=== PATIENT | female | born 1990 | race Caucasian/White ===

== ENCOUNTER 2022-06-29 15:29 | Inpatient (IN) ==
[2022-06-29 15:47] LABS: Basophils # (auto) 0.09 K/uL (0-0.2); Basophils % (auto) 0.9 %; Hematocrit (blood only) 38.9 % (34.1-44.9); Hemoglobin 13.2 g/dl (12.0-16.0); Immature Granulocytes # (auto) 0.04 K/uL (0.00-0.02); Immature Granulocytes % (auto) 0.4 %; Lymphocytes # (auto) 2.79 K/uL (1.2-3.4); Mean Corpuscular Hemoglobin 29.5 pg (25.0-34.0); Mean Corpuscular Hgb Conc 33.9 g/dL (32.0-36.0); Mean Platelet Volume 12.3 fL (9.4-12.3); Monocytes # (auto) 0.54 K/uL (0.24-0.82); Monocytes % (auto) 5.4 %; Neutrophils % (auto) 63.3 %; Platelet Count 293 K/uL (130-400); RDW Coefficient of Variation 12.9 % (11.5-14.5); RDW Standard Deviation 40.8 fL (36.4-46.3); Red Blood Count 4.47 M/uL (3.93-5.22); White Blood Count 9.96 K/ul (4.8-10.8)
[2022-06-29 16:03] LABS: Pregnancy Test, Serum Negative (Negative)
[2022-06-29] MEDS ORDERED: KETOROLAC TROMETHAMINE 15 MG/ML VIAL IV STA (16:19)
[2022-06-29] MEDS ORDERED: ONDANSETRON INJ 2 MG/ML 2 ML VIAL IV STA ×2 (16:19→18:03)
[2022-06-29] MEDS ORDERED: SODIUM CHLORIDE 0.9% 1000ML 1,000 ML IV ONE (16:19)
[2022-06-29 16:21] LABS: BUN Creatinine Ratio 16.2 (10-20); Calcium 8.2 mg/dl (8.5-10.1); Creatinine Clr Calc Pharmacy 123.7 ml/min; Est GFR (African American) 133.2 ml/min; Est GFR (Non-African American) 114.9 ml/min; Potassium 4.1 mmol/L (3.5-5.1)
[2022-06-29 16:35] LABS: Albumin Globulin Ratio 1.4 (0.9-2); Albumin Level 4.2 gm/dl (3.4-5.0); Bilirubin,Total 0.4 mg/dl (0.2-1.0); Globulin 2.9 gm/dl (2.5-4.0); Total Protein 7.1 gm/dl (6.0-8.3)
--- NOTE | 2022-06-29 16:37 | Emergency Department Note ---
History of Present Illness General Chief Complaint: Abdominal Pain Time Seen by Provider: 06/29/22 16:10 History of Present Illness Provider Complaint: abdominal pain Onset (ago): day(s) (1) Pain Consistency: intermittent Location: epigastric Radiation: back Severity: moderate Maximum Pain Intensity: 5 Current Pain Intensity: 5 Quality: + stabbing and + sharp Relieved By: + nothing Exacerbated By: + nothing Context: + history of similar episodes (History of gallstones); no foreign travel, no possible food poisoning, no sick contacts, no recent antibiotic use, no recent surgery/procedure or no recent injury Associated Symptoms: + nausea and + vomiting; no diarrhea, no fever, no chills, no constipation, no dysuria, no hematemesis, no hematochezia, no melena, no hematuria, no headache and no back pain Related Data Patient Confirmed : No Home Medications Medication Instructions Recorded Confirmed Type bupropion HCl 75 mg tablet 75 mg PO BID 06/29/22 06/29/22 History calcium carb-ergocalciferol (vit 1 tab PO BID 06/29/22 06/29/22 History D2) 600 mg calcium-200 unit tablet cyanocobalamin (vitamin B-12) 1,000 mcg IM Q28D 06/29/22 06/29/22 History 1,000 mcg/mL injection solution etonogestrel 0.12 mg-ethinyl 1 vag ring vaginal UD 06/29/22 06/29/22 History estradiol 0.015 mg/24 hr vaginal ring (EluRyng) lysine 1,000 mg tablet 1,000 mg PO DAILY 06/29/22 06/29/22 History pantoprazole 40 mg tablet,delayed 40 mg PO QAM 06/29/22 06/29/22 History release Allergies Allergy/AdvReac Type Severity Reaction Status Date / Time Penicillins Allergy Unknown OCCURED Verified 06/29/22 15:55 A CHILD Past Med/Surg History Medical History (Updated 06/30/22 @ 00:20 by Stu May) Acute pancreatitis Environmental and seasonal allergies Gallstone Obesity PCOS (polycystic ovarian syndrome) Surgical History H/O gastric bypass H/O wisdom tooth extraction History of tonsillectomy Family History Father Diabetes Social History Smoking Status: Never smoker Preferred Language: Serbian Feels Safe at Home: Yes Review of Systems A total of 10 systems reviewed and were otherwise negative Physical Exam Vital Signs: Vital Signs - 24 hr 06/29/22 15:20 06/29/22 15:20 06/29/22 15:36 Temperature 36.6 C Temperature Source Oral Pulse Rate 76 75 Pulse Rate from Sp O2 Sensor 74 Pulse Rhythm Regular Pulse Strength Normal Respiratory Rate 20 22 19 Respiratory Effort / Characteristics Non-Labored Non-Labored Respiratory Depth Normal Normal Respiratory Patter n Regular Blood Pressure Blood Pressure Meera n Blood Pressure Pos ition Lying Pulse Oximetry 99 100 Oxygen Delivery Me thod Room Air Sepsis Recent Feve r Within 48 Hours No Sepsis New/Unexpla ined Change in Men nilson Status N/A Sepsis Action Take n by Nursing No Action Required 06/29/22 15:41 06/29/22 15:41 06/29/22 16:00 Temperature Temperature Source Pulse Rate 68 Pulse Rate from Sp O2 Sensor 70 Pulse Rhythm Pulse Strength Respiratory Rate 20 Respiratory Effort / Characteristics Respiratory Depth Respiratory Patter n Blood Pressure 111/71 96/60 L Blood Pressure Meera n 84 72 Blood Pressure Pos ition Pulse Oximetry 100 Oxygen Delivery Me thod Sepsis Recent Feve r Within 48 Hours Sepsis New/Unexpla ined Change in Men nilson Status Sepsis Action Take n by Nursing 06/29/22 16:00 06/29/22 16:30 06/29/22 16:30 Temperature Temperature Source Pulse Rate 71 69 Pulse Rate from Sp O2 Sensor 71 69 Pulse Rhythm Pulse Strength Respiratory Rate 19 14 Respiratory Effort / Characteristics Respiratory Depth Respiratory Patter n Blood Pressure 100/65 Blood Pressure Meera n 76 Blood Pressure Pos ition Pulse Oximetry 100 100 Oxygen Delivery Me thod Sepsis Recent Feve r Within 48 Hours Sepsis New/Unexpla ined Change in Men nilson Status Sepsis Action Take n by Nursing 06/29/22 17:17 06/29/22 17:17 06/29/22 17:30 Temperature Temperature Source Pulse Rate 74 Pulse Rate from Sp O2 Sensor 71 Pulse Rhythm Pulse Strength Respiratory Rate 20 Respiratory Effort / Characteristics Respiratory Depth Respiratory Patter n Blood Pressure 102/58 L 111/66 Blood Pressure Meera n 72 81 Blood Pressure Pos ition Pulse Oximetry 100 Oxygen Delivery Me thod Sepsis Recent Feve r Within 48 Hours Sepsis New/Unexpla ined Change in Men nilson Status Sepsis Action Take n by Nursing 06/29/22 17:30 06/29/22 18:00 06/29/22 18:00 Temperature Temperature Source Pulse Rate 65 64 Pulse Rate from Sp O2 Sensor 63 64 Pulse Rhythm Pulse Strength Respiratory Rate 13 14 Respiratory Effort / Characteristics Respiratory Depth Respiratory Patter n Blood Pressure 107/68 Blood Pressure Meera n 81 Blood Pressure Pos ition Pulse Oximetry 100 100 Oxygen Delivery Me thod Sepsis Recent Feve r Within 48 Hours Sepsis New/Unexpla ined Change in Men nilson Status Sepsis Action Take n by Nursing 06/29/22 18:30 06/29/22 18:30 06/29/22 19:00 Temperature Temperature Source Pulse Rate 72 Pulse Rate from Sp O2 Sensor 74 Pulse Rhythm Pulse Strength Respiratory Rate 16 Respiratory Effort / Characteristics Respiratory Depth Respiratory Patter n Blood Pressure 110/72 106/63 Blood Pressure Meera n 84 77 Blood Pressure Pos ition Pulse Oximetry 99 Oxygen Delivery Me thod Sepsis Recent Feve r Within 48 Hours Sepsis New/Unexpla ined Change in Men nilson Status Sepsis Action Take n by Nursing 06/29/22 19:00 06/29/22 19:30 06/29/22 19:30 Temperature Temperature Source Pulse Rate 71 68 Pulse Rate from Sp O2 Sensor 72 69 Pulse Rhythm Pulse Strength Respiratory Rate 13 22 Respiratory Effort / Characteristics Respiratory Depth Respiratory Patter n Blood Pressure 113/63 Blood Pressure Meera n 79 Blood Pressure Pos ition Pulse Oximetry 97 98 Oxygen Delivery Me thod Sepsis Recent Feve r Within 48 Hours Sepsis New/Unexpla ined Change in Men nilson Status Sepsis Action Take n by Nursing 06/29/22 19:45 Temperature Temperature Source Pulse Rate 72 Pulse Rate from Sp O2 Sensor 73 Pulse Rhythm Pulse Strength Respiratory Rate 21 Respiratory Effort / Characteristics Respiratory Depth Respiratory Patter n Blood Pressure Blood Pressure Meera n Blood Pressure Pos ition Pulse Oximetry 98 Oxygen Delivery Me thod Sepsis Recent Feve r Within 48 Hours Sepsis New/Unexpla ined Change in Men nilson Status Sepsis Action Take n by Nursing Physical Exam: Physical Exam GENERAL: She is oriented to person, place, and time. She appears well-developed and well-nourished. She does not appear distressed. HENT: Exam performed. -Head: Normocephalic and atraumatic. -Right Ear: External ear normal. No mastoid tenderness. -Left Ear: External ear normal. No mastoid tenderness. -Mouth/Throat: The oropharynx is clear and moist. No trismus in the jaw. No dental abscesses or uvula swelling. No oropharyngeal exudate or tonsillar abscesses. EYES: Conjunctivae and EOM are normal. Pupils are equal, round, and reactive to light. Right eye exhibits no discharge. Left eye exhibits no discharge. No scleral icterus. NECK: Normal range of motion. Neck supple. No JVD present. No spinous process tenderness present. No carotid bruit present. No rigidity. No tracheal deviation and normal range of motion present. No Brudzinski's sign and no Kernig's sign noted. CV: Normal rate, regular rhythm, normal heart sounds and intact distal pulses. There is no peripheral edema. Palpable radial pulses bue. PULM/CHEST: Effort normal and breath sounds normal. No respiratory distress. No stridor. She has no wheezes. She has no rales. -Chest Wall: She exhibits no tenderness. ABD: The abdomen is soft. Bowel sounds are normal. She has no distension. No mass is present. There is tenderness to palpation of the epigastric area. There is no rebound, no guarding, no Pacheco's sign and no tenderness at McBurney's point. Rovsig negative MUSC/SKEL: Normal range of motion. There is no peripheral edema, tenderness or deformity. LYMPH: No cervical adenopathy. NEURO: She is alert and oriented to person, place, and time. She has normal strength. No cranial nerve deficit or sensory deficit. Coordination and gait normal. GCS eye subscore is 4. GCS verbal subscore is 5. GCS motor subscore is 6. Cerebellar tests wnl. SKIN: Skin is warm and dry. She is not diaphoretic. PSYCH: She has a normal mood and affect. Behavior is normal. Judgment and thought content normal. Course Course 1610: The patient was evaluated in room A2. A complete history and physical exam was performed Cardiac monitoring: An order was placed for continuous cardiac monitoring. The monitor shows a rate of 60 with sinus rhythm 1836: Vital signs stable. Labs show elevated lipase of greater than 4000 and an AST more than twice a ALT. CT does confirm pancreatitis. CT also mentions a possible developing small bowel obstruction however the patient reports no difficulties having bowel movements. CT report shows that there is a distended gallbladder with mild gallbladder thickening which is nonspecific and may be related to periportal edema. Clinically the patient does not have a Pacheco sign and no pain on palpation right upper quadrant. [facility] Dr. Benitez for pancreatitis. Ultrasound is ordered for the patient. 2024: Ultrasound shows gallstones and a negative sonographic Pacheco sign. Equivocal for acute cholecystitis. Patient admitted to medicine. Administered Medications Bupropion HCl (Bupropion Hcl 75 Mg Tablet) 75 mg PO BID [facility] Stop: 07/29/22 22:40 Last Admin: 06/30/22 00:06 Dose: Not Given Documented By: SUJATA Calcium/Vitamin D (Calcium 600mg + Vit D 400 Iu Tab) 1 tab PO BID [facility]IMI Stop: 07/29/22 22:40 Last Admin: 06/30/22 00:06 Dose: Not Given Documented By: SUJATA Lactated Ringer's (Lr) 1,000 mls @ 150 mls/hr IV .Q6H40M [facility] Stop: 07/29/22 22:40 Last Admin: 06/30/22 00:05 Dose: 150 mls/hr Documented By: SUJATA Cefepime HCl 2,000 mg/ Syringe 20 mls @ 5 mls/min IV Q8H [facility]; Protocol Stop: 07/09/22 22:59 Last Admin: 06/30/22 00:05 Dose: 5 mls/min Documented By: SUJATA Metronidazole (Flagyl) 500 mg in 100 mls @ 100 mls/hr IV Q8H [facility] Stop: 07/09/22 22:59 Last Admin: 06/30/22 00:05 Dose: 100 mls/hr Documented By: SUJATA Discontinued Medications Sodium Chloride (Nss 1000ml) 1,000 mls @ 999 mls/hr IV .Q1H1M ONE Stop: 06/29/22 17:19 Last Admin: 06/29/22 17:12 Dose: 999 mls/hr Documented By: MARLEE Sodium Chloride (Nss 1000ml) 1,000 mls @ 125 mls/hr IV .Q8H [facility]IMI Stop: 07/29/22 18:14 Last Admin: 06/29/22 19:00 Dose: 125 mls/hr Documented By: DAVEY Ioversol (Optiray 350 100ml) 82 ml IV ONCE ONE Stop: 06/29/22 17:05 Last Admin: 06/29/22 17:05 Dose: 82 ml Documented By: ARYA Ketorolac Tromethamine (Ketorolac Tromethamine 15 Mg/Ml Vial) 15 mg IV NOW STA Stop: 06/29/22 16:20 Last Admin: 06/29/22 17:12 Dose: Not Given Documented By: MARLEE Morphine Sulfate (Morphine Sulfate 4 Mg/Ml 1 Ml Carp\Vial) 4 mg IV NOW STA Stop: 06/29/22 18:04 Last Admin: 06/29/22 18:30 Dose: Not Given Documented By: LOD Ondansetron HCl (Ondansetron Inj 2 Mg/Ml 2 Ml Vial) 4 mg IV NOW STA Stop: 06/29/22 16:20 Last Admin: 06/29/22 17:12 Dose: 4 mg Documented By: MARLEE Ondansetron HCl (Ondansetron Inj 2 Mg/Ml 2 Ml Vial) 4 mg IV NOW STA Stop: 06/29/22 18:04 Last Admin: 06/29/22 18:30 Dose: Not Given Documented By: RDD Medical Decision Making Laboratory Data Result diagrams: 06/29/22 15:33 06/29/22 15:33 Lab Results 06/29/22 06/29/22 06/29/22 Range/Units 15:33 15:33 15:33 WBC 9.96 (4.8-10.8) K/ul RBC 4.47 (3.93-5.22) M/uL Hgb 13.2 (12.0-16.0) g/dl Hct 38.9 (34.1-44.9) % MCV 87.0 (80.0-100.0) fL MCH 29.5 (25.0-34.0) pg MCHC 33.9 (32.0-36.0) g/dL RDW Std Deviation 40.8 (36.4-46.3) fL RDW Coeff of Paula 12.9 (11.5-14.5) % Plt Count 293 (130-400) K/uL MPV 12.3 (9.4-12.3) fL Immature Gran % (Auto) 0.4 % Neut % (Auto) 63.3 % Lymph % (Auto) 28.0 % [place] % (Auto) 5.4 % Eos % (Auto) 2.0 % Baso % (Auto) 0.9 % Neut # (Auto) 6.30 (1.4-6.5) K/uL Lymph # (Auto) 2.79 (1.2-3.4) K/uL [place] # (Auto) 0.54 (0.24-0.82) K/uL Eos # (Auto) 0.20 (0-0.50) K/uL Baso # (Auto) 0.09 (0-0.2) K/uL Immature Gran # (Auto) 0.04 H (0.00-0.02) K/uL Sodium 138 (136-145) mmol/L Potassium 4.1 (3.5-5.1) mmol/L Chloride 107 (98-107) mmol/L Carbon Dioxide 25 (21-32) mmol/L Anion Gap 6 (3-11) BUN 11 (6-23) mg/dl Creatinine 0.68 (0.6-1.2) mg/dl Est Cr Clr Drug Dosing 123.7 ml/min Est GFR ( Amer) 133.2 ml/min Est GFR (Non-Af Amer) 114.9 ml/min BUN/Creatinine Ratio 16.2 (10-20) Glucose 118 H (70-99(Fasting)) mg/dl Calcium 8.2 L (8.5-10.1) mg/dl Total Bilirubin 0.4 (0.2-1.0) mg/dl AST 42 H (13-39) U/L ALT 20 (7-52) U/L Alkaline Phosphatase 61 (34-104) U/L Total Protein 7.1 (6.0-8.3) gm/dl Albumin 4.2 (3.4-5.0) gm/dl Globulin 2.9 (2.5-4.0) gm/dl Albumin/Globulin Ratio 1.4 (0.9-2) Lipase 4595 H (11-82) U/L HCG, Qual Negative (Negative) SARS-CoV-2, RNA, NAAT (NEGATIVE) 06/29/22 Range/Units 18:53 WBC (4.8-10.8) K/ul RBC (3.93-5.22) M/uL Hgb (12.0-16.0) g/dl Hct (34.1-44.9) % MCV (80.0-100.0) fL MCH (25.0-34.0) pg MCHC (32.0-36.0) g/dL RDW Std Deviation (36.4-46.3) fL RDW Coeff of Paula (11.5-14.5) % Plt Count (130-400) K/uL MPV (9.4-12.3) fL Immature Gran % (Auto) % Neut % (Auto) % Lymph % (Auto) % [place] % (Auto) % Eos % (Auto) % Baso % (Auto) % Neut # (Auto) (1.4-6.5) K/uL Lymph # (Auto) (1.2-3.4) K/uL [place] # (Auto) (0.24-0.82) K/uL Eos # (Auto) (0-0.50) K/uL Baso # (Auto) (0-0.2) K/uL Immature Gran # (Auto) (0.00-0.02) K/uL Sodium (136-145) mmol/L Potassium (3.5-5.1) mmol/L Chloride (98-107) mmol/L Carbon Dioxide (21-32) mmol/L Anion Gap (3-11) BUN (6-23) mg/dl Creatinine (0.6-1.2) mg/dl Est Cr Clr Drug Dosing ml/min Est GFR ( Amer) ml/min Est GFR (Non-Af Amer) ml/min BUN/Creatinine Ratio (10-20) Glucose (70-99(Fasting)) mg/dl Calcium (8.5-10.1) mg/dl Total Bilirubin (0.2-1.0) mg/dl AST (13-39) U/L ALT (7-52) U/L Alkaline Phosphatase (34-104) U/L Total Protein (6.0-8.3) gm/dl Albumin (3.4-5.0) gm/dl Globulin (2.5-4.0) gm/dl Albumin/Globulin Ratio (0.9-2) Lipase (11-82) U/L HCG, Qual (Negative) SARS-CoV-2, RNA, NAAT NEGATIVE (NEGATIVE) Imaging Data Radiologist's Impression: Abdomen/Pelvis CT 06/29/22 16:20 CT SCAN OF THE ABDOMEN AND PELVIS WITH IV CONTRAST CLINICAL HISTORY: Epigastric abdominal pain. COMPARISON STUDY: Pelvic ultrasound dated 12/26/2018. TECHNIQUE: Following the IV administration of 82 cc of Optiray 350, CT scan of the abdomen and pelvis is performed from the lung bases to the proximal femora. Images are reviewed in the axial, sagittal, and coronal planes. IV contrast was administered without complication. A dose lowering technique was utilized adhering to the principles of ALARA. CT DOSE: 409.70 mGy.cm FINDINGS: Lung bases: The heart is normal in size and without pericardial effusion. The lung bases are clear. Liver: The contrast-enhanced liver is normal in size, contour, and attenuation. There is no intrahepatic biliary ductal dilatation. The hepatic veins and portal veins are patent. Periportal edema is noted. Gallbladder: Distended and contains gallstones. The gallbladder wall appears mildly thickened. Spleen: Normal in size and attenuation. Pancreas: Question mild peripancreatic infiltration. The pancreas is otherwise normal as imaged, and the gland enhances throughout. Adrenal glands: Unremarkable. Kidneys: The contrast enhanced kidneys are normal in size and without hydronephrosis. The kidneys enhance symmetrically. Abdominal vasculature: The abdominal aorta is normal in course and caliber. Stomach and bowel: Postsurgical changes consistent with a Karri-en-Y gastric bypass procedure. The proximal jejunum is distended and fluid-filled measuring up to 3 cm diameter. The distal small bowel is relatively decompressed. No discrete transition point is identified. There is moderate colonic fecal retention. The appendix is well-visualized and normal. Peritoneum: There is no intraperitoneal free air or abdominal ascites. Lymphadenopathy: None. Pelvic viscera: The bladder, uterus, and adnexa are normal as visualized noting bilateral ovarian follicles. A dominant follicle on the left measures up to 3.1 cm. A contraceptive ring is in place. Skeletal structures: No lytic or blastic lesions are seen. IMPRESSION: 1. There is postsurgical change consistent with a Karri-en-Y gastric bypass procedure. 2. The proximal jejunum above the anastomosis is mildly distended and fluid- filled. The distal small bowel is relatively decompressed. No discrete transition point is identified. Low-grade or developing obstruction is not excluded. Clinical correlation will be essential. 3. The gallbladder is distended and contains gallstones. Mild gallbladder wall thickening is nonspecific and may be related to periportal edema. Correlate with clinical and laboratory findings. If there is concern for acute cholecystitis a right upper quadrant ultrasound should be obtained. 4. Question mild peripancreatic infiltration. Correlate with clinical findings and serum amylase/lipase levels for evidence of pancreatitis. 5. Additional findings as above. ACT 112: Negative or not required by law. Electronically signed by: Unruly Martinez M.D. 06/29/2022 5:29 PM Gallbladder Ultrasound 06/29/22 18:04 ULTRASOUND RIGHT UPPER QUADRANT ABDOMEN CLINICAL HISTORY: Epigastric abdominal pain. COMPARISON STUDY: Abdominal CT performed earlier the same date 06/29/2022 TECHNIQUE: Real-time, grayscale, and color flow sonography of the right upper quadrant of the abdomen was performed. Images are reviewed in the transverse and longitudinal planes. FINDINGS: Liver: The liver is top normal in size and normal in echotexture. There is no intrahepatic biliary ductal dilatation. The main portal vein is patent. Gallbladder: The gallbladder is distended and appears thick-walled the gallbladder wall measures up to 3 mm. Gallstones are noted. Cholecystectomy is identified. A sonographic Pacheco's sign is reportedly absent. The common bile duct measures up to 0.3 cm in diameter. Pancreas: Not visualized due to overlying bowel gas. Right kidney: Survey images of the right kidney demonstrate normal size and echotexture. There is no hydronephrosis. Ascites: None. IMPRESSION: 1. Cholelithiasis within a mildly thick-walled and distended gallbladder. A sonographic Pacheco's sign is reportedly absent. Findings are equivocal for acute cholecystitis, which is not excluded. If there is strong clinical concern for cholecystitis a nuclear hepatobiliary scan should be considered. 2. There is no intra or extrahepatic biliary ductal dilatation. 3. Nonvisualization of the pancreas. ACT 112: Negative or not required by law. Electronically signed by: Unruly Martinez M.D. 06/29/2022 8:20 PM ECG Data Indication: abdominal pain Rate (beats per minute): 69 Rhythm: normal sinus Findings: no ST depression, no ST elevation or no prolonged QT Additional Comments: QRS 68. Baseline wander and artifact MDM Narrative 1610: The patient was evaluated in room A2. A complete history and physical exam was performed Cardiac monitoring: An order was placed for continuous cardiac monitoring. The monitor shows a rate of 60 with sinus rhythm 1836: Vital signs stable. Labs show elevated lipase of greater than 4000 and an AST more than twice a ALT. CT does confirm pancreatitis. CT also mentions a possible developing small bowel obstruction however the patient reports no difficulties having bowel movements. CT report shows that there is a distended gallbladder with mild gallbladder thickening which is nonspecific and may be related to periportal edema. Clinically the patient does not have a Pacheco sign and no pain on palpation right upper quadrant. [facility] with Dr. Benitez for pancreatitis. Ultrasound is ordered for the patient. 2024: Ultrasound shows gallstones and a negative sonographic Pacheco sign. Eq uivocal for acute cholecystitis. Patient admitted to medicine. Impression & Plan Pancreatitis Discharge Plan Visit Data Chief Complaint: Abdominal Pain ED Provider: Stu May Discharge Problem: Pancreatitis Patient Disposition: Admitted As Inpatient Discharge Instructions Interventions: ED Discharge Assessment Last Done: 06/29/22 22:03
[2022-06-29] MEDS ORDERED: OPTIRAY 350 100ml IV ONE (17:04)
--- NOTE | 2022-06-29 17:31 | CT Scan Report ---
CT SCAN OF THE ABDOMEN AND PELVIS WITH IV CONTRAST CLINICAL HISTORY: Epigastric abdominal pain. COMPARISON STUDY: Pelvic ultrasound dated 12/26/2018. TECHNIQUE: Following the IV administration of 82 cc of Optiray 350, CT scan of the abdomen and pelvi s is performed from the lung bases to the proximal femora. Images are reviewed in the axial, sagittal , and coronal planes. IV contrast was administered without complication. A dose lowering technique wa s utilized adhering to the principles of ALARA. CT DOSE: 409.70 mGy.cm FINDINGS: Lung bases: The heart is normal in size and without pericardial effusion. The lung bases are clear. Liver: The contrast-enhanced liver is normal in size, contour, and attenuation. There is no intrahepa tic biliary ductal dilatation. The hepatic veins and portal veins are patent. Periportal edema is not ed. Gallbladder: Distended and contains gallstones. The gallbladder wall appears mildly thickened. Spleen: Normal in size and attenuation. Pancreas: Question mild peripancreatic infiltration. The pancreas is otherwise normal as imaged, and the gland enhances throughout. Adrenal glands: Unremarkable. Kidneys: The contrast enhanced kidneys are normal in size and without hydronephrosis. The kidneys enh ance symmetrically. Abdominal vasculature: The abdominal aorta is normal in course and caliber. Stomach and bowel: Postsurgical changes consistent with a Karri-en-Y gastric bypass procedure. The pro ximal jejunum is distended and fluid-filled measuring up to 3 cm diameter. The distal small bowel is relatively decompressed. No discrete transition point is identified. There is moderate colonic fecal retention. The appendix is well-visualized and normal. Peritoneum: There is no intraperitoneal free air or abdominal ascites. Lymphadenopathy: None. Pelvic viscera: The bladder, uterus, and adnexa are normal as visualized noting bilateral ovarian fol licles. A dominant follicle on the left measures up to 3.1 cm. A contraceptive ring is in place. Skeletal structures: No lytic or blastic lesions are seen. IMPRESSION: 1. There is postsurgical change consistent with a Karri-en-Y gastric bypass procedure. 2. The proximal jejunum above the anastomosis is mildly distended and fluid-filled. The distal small bowel is relatively decompressed. No discrete transition point is identified. Low-grade or developing obstruction is not excluded. Clinical correlation will be essential. 3. The gallbladder is distended and contains gallstones. Mild gallbladder wall thickening is nonspeci fic and may be related to periportal edema. Correlate with clinical and laboratory findings. If there is concern for acute cholecystitis a right upper quadrant ultrasound should be obtained. 4. Question mild peripancreatic infiltration. Correlate with clinical findings and serum amylase/lipa se levels for evidence of pancreatitis. 5. Additional findings as above. ACT 112: Negative or not required by law. Electronically signed by: Unruly Martinez M.D. 06/29/2022 5:29 PM
[2022-06-29] MEDS ORDERED: MoRPHine SULFATE 4 MG/ML 1 ML CARP\\VIAL IV STA (18:03)
[2022-06-29] MEDS ORDERED: SODIUM CHLORIDE 0.9% 1000ML 1,000 ML IV SCH (18:15)
--- NOTE | 2022-06-29 18:38 | History & Physical Report ---
Date of Service June 29, 2022 Assessment & Plan (1) Acute pancreatitis: Plan: Gallstone pancreatitis Possible abdominal pain small bowel obstruction Concern for acute cholecystitis H/O gastric bypass --CT ABD:There is postsurgical change consistent with a Karri-en-Y gastric bypass procedure. The proximal jejunum above the anastomosis is mildly distended and fluid-filled. The distal small bowel is relatively decompressed. No discrete transition point is identified. Low-grade or developing obstruction is not excluded. Clinical correlation will be essential. The gallbladder is distended and contains gallstones. Mild gallbladder wall thickening is nonspecific and may be related to periportal edema. Correlate with clinical and laboratory findings. If there is concern for acute cholecystitis a right upper quadrant ultrasound should be obtained. Question mild peripancreatic infiltration. Correlate with clinical findings and serum amylase/lipase levels for evidence of pancreatitis. --Gall Bladder USD: cholelithiasis within a mildly thick-walled and distended gallbladder. A sonographic Pacheco's sign is reportedly absent. Findings are equivocal for acute cholecystitis, which is not excluded. If there is strong clinical concern for cholecystitis a nuclear hepatobiliary scan should be considered. There is no intra or extrahepatic biliary ductal dilatation. Nonvisualization of the pancreas. --NPO for now Started on IV fluids Check HIDA scan GI, Surgery consulted Started on empiric antibiotics--cefepime, Flagyl Check Lipid panel Pain control Monitor LFTs Anxiety and Depression Continue Bupropion Polycystic ovarian syndrome Irritable bowel syndrome Obesity S/P Gastric Bypass Stable DVT Px: SCDs for now Code Status Full Code History of Present Illness Chief Complaint: Abdominal Pain Primary Care Provider: Zen Segal DO Patient is a 31-year-old female with history of polycystic ovarian syndrome, irritable bowel syndrome, Obesity S/P Gastric Bypass, cholelithiasis and other medical problems presents with history of epigastric sharp stabbing pain, 10/10 intensity, radiating to the back, associated with nausea and vomiting which started this afternoon after having lunch. 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 Patient had similar symptoms in the past few days ago which spontaneously resolved. Epigastric pain worsens with eating and improves with pain medications. Currently while in ED, patient is pain-free. She felt feverish today but did not check her temperature. She admits to drinking alcohol socially, last drink 2 days ago. Denies any history of chest pain, dyspnea, palpitations, dizziness, pedal edema, cough, headache, blood in stools, diarrhea, dysuria, hematuria. Allergies Allergy/AdvReac Type Severity Reaction Status Date / Time Penicillins Allergy Unknown OCCURED Verified 06/29/22 15:55 A CHILD Home Medications Medication Instructions Recorded Confirmed Type bupropion HCl 75 mg tablet 75 mg PO BID 06/29/22 06/29/22 History calcium carb-ergocalciferol (vit 1 tab PO BID 06/29/22 06/29/22 History D2) 600 mg calcium-200 unit tablet cyanocobalamin (vitamin B-12) 1,000 mcg IM Q28D 06/29/22 06/29/22 History 1,000 mcg/mL injection solution etonogestrel 0.12 mg-ethinyl 1 vag ring vaginal UD 06/29/22 06/29/22 History estradiol 0.015 mg/24 hr vaginal ring (EluRyng) lysine 1,000 mg tablet 1,000 mg PO DAILY 06/29/22 06/29/22 History pantoprazole 40 mg tablet,delayed 40 mg PO QAM 06/29/22 06/29/22 History release Past Med/Surg History Medical History (Updated 06/29/22 @ 21:05 by Karlos Nazario MD) Acute pancreatitis Environmental and seasonal allergies Gallstone Obesity PCOS (polycystic ovarian syndrome) Surgical History H/O gastric bypass H/O wisdom tooth extraction History of tonsillectomy Family History Father Diabetes Social History Smoking Status: Never smoker Preferred Language: Greenlandic Feels Safe at Home: Yes Review of Systems Review of Systems: All systems reviewed & are unremarkable except as noted in Subjective Physical Exam Physical Exam: Physical Exam: Vitals signs as noted above General Appearance:Moderately built and nourished, no apparent distress Head: normocephalic, Atraumatic Eyes: normal inspection, EOMI Neck: supple, Trachea midline Respiratory/Chest: Normal breath sounds, CTA, No accessory muscle use Cardiovascular: S1, S2, No murmur Abdomen/GI:Soft, mild Epigastric tender, Bowel sounds present Extremities/Musculoskeletal:normal inspection, no edema Neurologic/Psych:AAOX3, grossly no focal neurological deficits Skin: normal color, warm Results & Data Results & Data ([facility]) Vital Signs (Past 12 Hours) Vital Signs Temp Pulse Resp BP Pulse Ox O2 Del Method 06/29/22 17:30 65 13 100 06/29/22 17:30 111/66 06/29/22 17:17 74 20 100 06/29/22 17:17 102/58 L 06/29/22 16:30 69 14 100 06/29/22 16:30 100/65 06/29/22 16:00 71 19 100 06/29/22 16:00 96/60 L 06/29/22 15:41 68 20 100 06/29/22 15:41 111/71 06/29/22 15:36 75 19 100 06/29/22 15:20 22 06/29/22 15:20 36.6 C 76 20 99 Room Air Laboratory Results Short CBC 06/29/22 Range/Units 15:33 WBC 9.96 (4.8-10.8) K/ul Hgb 13.2 (12.0-16.0) g/dl Hct 38.9 (34.1-44.9) % Plt Count 293 (130-400) K/uL BMP 06/29/22 15:33 Sodium 138 Potassium 4.1 Chloride 107 Carbon Dioxide 25 BUN 11 Creatinine 0.68 Glucose 118 H Calcium 8.2 L Liver Function 06/29/22 Range/Units 15:33 Total Bilirubin 0.4 (0.2-1.0) mg/dl AST 42 H (13-39) U/L ALT 20 (7-52) U/L Alkaline Phosphatase 61 (34-104) U/L Albumin 4.2 (3.4-5.0) gm/dl Diagnostic Findings --CT ABD: There is postsurgical change consistent with a Karri-en-Y gastric bypass procedure. The proximal jejunum above the anastomosis is mildly distended and fluid-filled. The distal small bowel is relatively decompressed. No discrete transition point is identified. Low-grade or developing obstruction is not excluded. Clinical correlation will be essential. The gallbladder is distended and contains gallstones. Mild gallbladder wall thickening is nonspecific and may be related to periportal edema. Correlate with clinical and laboratory findings. If there is concern for acute cholecystitis a right upper quadrant ultrasound should be obtained. Question mild peripancreatic infiltration. Correlate with clinical findings and serum amylase/lipase levels for evidence of pancreatitis. Gall Bladder USD: Cholelithiasis within a mildly thick-walled and distended gallbladder. A sonographic Pacheco's sign is reportedly absent. Findings are equivocal for acute cholecystitis, which is not excluded. If there is strong clinical concern for cholecystitis a nuclear hepatobiliary scan should be considered. There is no intra or extrahepatic biliary ductal dilatation. Nonvisualization of the pancreas. ECG Additional Comments: EKG: Normal sinus rhythm, PACs, voltage QRS, QTC 439.
--- NOTE | 2022-06-29 20:22 | Ultrasound Report ---
ULTRASOUND RIGHT UPPER QUADRANT ABDOMEN CLINICAL HISTORY: Epigastric abdominal pain. COMPARISON STUDY: Abdominal CT performed earlier the same date 06/29/2022 TECHNIQUE: Real-time, grayscale, and color flow sonography of the right upper quadrant of the abdomen was performed. Images are reviewed in the transverse and longitudinal planes. FINDINGS: Liver: The liver is top normal in size and normal in echotexture. There is no intrahepatic biliary du ctal dilatation. The main portal vein is patent. Gallbladder: The gallbladder is distended and appears thick-walled the gallbladder wall measures up t o 3 mm. Gallstones are noted. Cholecystectomy is identified. A sonographic Pacheco's sign is reportedly absent. The common bile duct measures up to 0.3 cm in diameter. Pancreas: Not visualized due to overlying bowel gas. Right kidney: Survey images of the right kidney demonstrate normal size and echotexture. There is no hydronephrosis. Ascites: None. IMPRESSION: 1. Cholelithiasis within a mildly thick-walled and distended gallbladder. A sonographic Pacheco's sign is reportedly absent. Findings are equivocal for acute cholecystitis, which is not excluded. If ther e is strong clinical concern for cholecystitis a nuclear hepatobiliary scan should be considered. 2. There is no intra or extrahepatic biliary ductal dilatation. 3. Nonvisualization of the pancreas. ACT 112: Negative or not required by law. Electronically signed by: Unruly Martinez M.D. 06/29/2022 8:20 PM
[2022-06-29] MEDS ORDERED: POLYETHYLENE (MIRALAX) 17 GM PACK PO PRN (22:41)
[2022-06-29] MEDS ORDERED: ONDANSETRON INJ 2 MG/ML 2 ML VIAL IV PRN (22:41)
[2022-06-29] MEDS ORDERED: ACETAMINOPHEN 325 MG TAB PO PRN (22:41)
[2022-06-29] MEDS ORDERED: MoRPHine SULFATE 2 MG/ML CARP IV PRN (22:41)
[2022-06-30] MEDS: metroNIDAZOLE 500 MG/100 ML BAG IV SCH ×3 (00:05→16:50)
[2022-06-30] MEDS: CEFEPIME 2,000 MG in SYRINGE 0 ML IV SCH ×3 (00:05→16:50)
[2022-06-30] MEDS: LACTATED RINGER'S 1,000 ML IV SCH ×5 (00:05→20:20)
[2022-06-30] MEDS: CALCIUM 600MG + VIT D 400 IU TAB PO SCH ×3 (00:06→20:10)
[2022-06-30] MEDS: buPROPion HCl 75 MG TABLET PO SCH ×3 (00:06→20:15)
[2022-06-30 06:04] LABS: Basophils # (auto) 0.08 K/uL (0-0.2); Basophils % (auto) 1.1 %; Eosinophils # (auto) 0.16 K/uL (0-0.50); Eosinophils % (auto) 2.2 %; Hematocrit (blood only) 31.2 % (34.1-44.9); Hemoglobin 10.6 g/dl (12.0-16.0); Immature Granulocytes # (auto) 0.09 K/uL (0.00-0.02); Immature Granulocytes % (auto) 1.2 %; Lymphocytes # (auto) 2.14 K/uL (1.2-3.4); Lymphocytes % (auto) 29.4 %; Mean Corpuscular Hemoglobin 29.5 pg (25.0-34.0); Mean Corpuscular Volume 86.9 fL (80.0-100.0); Mean Platelet Volume 12.2 fL (9.4-12.3); Monocytes # (auto) 0.48 K/uL (0.24-0.82); Monocytes % (auto) 6.6 %; Neutrophils # (auto) 4.34 K/uL (1.4-6.5); Neutrophils % (auto) 59.5 %; Platelet Count 209 K/uL (130-400); RDW Coefficient of Variation 12.7 % (11.5-14.5); RDW Standard Deviation 40.4 fL (36.4-46.3); Red Blood Count 3.59 M/uL (3.93-5.22); White Blood Count 7.29 K/ul (4.8-10.8)
--- NOTE | 2022-06-30 06:15 | Surgery Consultation ---
Date of Consultation June 30, 2022 Assessment & Plan (1) Pancreatitis: The patient has been admitted on the hospitalist service. Recommend proceeding as follows: -Agree with antibiotics. The patient is receiving cefepime and Flagyl Agree with aggressive hydration measuresshe is receiving lactated Ringer's at 150 cc/h Provide analgesics Provide antiemetics Follow serial labs (a.m. labs are pending this morning I discussed with the patient that her pancreatitis is likely due to gallstones. I discussed with her the treatment for this is usually cholecystectomy to prevent this from happening again. I also discussed her that timing of surgery will be dependent on serial labs as I told her we would like to see her pancreatitis resolved before proceeding with surgical intervention. Will continue to follow along with the patient is hospitalized with additional recommendations to follow. Remainder of plan as directed by the primary service Supervising Physician Co-Signing Physician Notes Dr. Dumas was seen in her room-discussed likely cause of her pancreatitis is from gallstones Laparoscopic cholecystectomy during this admission is best treatment for this problem Likely proceed tomorrow depending on other work-up History of Present Illness Reason for Consultation: Abdominal pain Attending Physician: Karlos Nazario MD History of Present Illness Is a 31-year-old female who presented to [facility] secondary to abdominal pain. Patient notes that she has been having postprandial pain for several months. She notes that usually she would develop some abdominal pain in the upper abdomen usually 20 to 30 minutes after eating, although sometimes immediately after eating as well. She notes that the pain would usually self resolve. Last night she developed similar pain immediately after eating and noted that she was doubled over in pain so she presented to the emergency department. She has had prior abdominal surgeries in the form of a gastric bypass. This was performed in [facility] in 2019. The patient notes that she lost between 100 7180 pounds already. She has no prior other abdominal surgeries. The patient denies any fevers, shakes, or chills. She also had associated nausea and vomiting. Since admission to the hospital the patient has had labs and imaging which which I independently reviewed. She had a CT scan of the abdomen pelvis. This did show findings consistent with a Karri-en-Y gastric bypass. She was noted to have a distended proximal jejunum. She was noted to have a distended gallbladder containing gallstones with gallbladder wall thickening. There was some peripancreatic infiltration noted on the study. A gallbladder ultrasound showed gallstones with mild gallbladder wall and at the end is distended gallbladder. There is no biliary ductal dilatation. Most recent labs were from today including a CBC her white blood cell count and platelet count is normal. Her hemoglobin and hematocrit are 10.6 and 31.2. Chemistry profile today is pending however at time of admission chemistry profile revealed sodium, potassium, BUN, and creatinine were normal. The patient did have a slight elevation of her AST at 42 but her total bilirubin, ALT, alkaline phosphatase were normal. She was noted to have an elevated lipase at 4595. At the time of my interview the patient was resting comfortably in bed and she notes that her symptoms have improved. Allergies Allergy/AdvReac Type Severity Reaction Status Date / Time Penicillins Allergy Unknown OCCURED Verified 06/29/22 15:55 A CHILD Home Medications Medication Instructions Recorded Confirmed Type bupropion HCl 75 mg tablet 75 mg PO BID 06/29/22 06/29/22 History calcium carb-ergocalciferol (vit 1 tab PO BID 06/29/22 06/29/22 History D2) 600 mg calcium-200 unit tablet cyanocobalamin (vitamin B-12) 1,000 mcg IM Q28D 06/29/22 06/29/22 History 1,000 mcg/mL injection solution etonogestrel 0.12 mg-ethinyl 1 vag ring vaginal UD 06/29/22 06/29/22 History estradiol 0.015 mg/24 hr vaginal ring (EluRyng) lysine 1,000 mg tablet 1,000 mg PO DAILY 06/29/22 06/29/22 History pantoprazole 40 mg tablet,delayed 40 mg PO QAM 06/29/22 06/29/22 History release Patient History Medical History Acute pancreatitis Environmental and seasonal allergies Gallstone Obesity PCOS (polycystic ovarian syndrome) Surgical History H/O gastric bypass H/O wisdom tooth extraction History of tonsillectomy Family History Father Diabetes Social History Smoking Status: Never smoker Hx Alcohol Use: No Hx Substance Use: No Preferred Language: Swazi Communication Ability: Effective 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 Beliefs That Will Affect Care: None Current Living Situation: Alone Other Information That Helps Us Care for You: No Feels Safe at Home: Yes Review of Systems Constitutional: no fever and no chills Ear, Nose, Mouth, Throat: no ear pain Respiratory: no cough and no dyspnea Cardiovascular: no chest pain Gastrointestinal: + abdominal pain, + nausea and + vomiting Genitourinary: no dysuria Musculoskeletal: no back pain Integumentary: no rash Neurologic: no localized weakness Physical Exam 2 Constitutional: WD/WN, vitals as above Eyes: + anicteric sclerae ENMT: Ears: no hearing impairment and no external ear abnormality Mouth: no oropharynx abnormality Neck: trachea midline Respiratory: normal respiratory effort; no respiratory distress and no labored breathing Cardiovascular: Rate/Rhythm: regular rate and regular rhythm Gastrointestinal (Abdomen): At the time of my exam the patient's abdomen was soft and nondistended. It was nonrigid. There is no rebound tenderness or guarding. Patient did have a small amount of pain with deep palpation in the epigastric area and the right upper quadrant. Musculoskeletal: No calf tenderness Skin: no rashes Neurologic: moves all extremities Results & Data ([facility]) Vital Signs (Past 12 Hours) Vital Signs Temp Pulse Pulse Resp BP BP Pulse Ox 06/30/22 03:00 36.6 C 65 18 94/55 L 99 06/30/22 02:00 64 06/30/22 00:29 06/30/22 00:29 36.7 C 64 16 96 06/29/22 22:03 06/29/22 21:59 98 06/29/22 21:58 99/59 L 06/29/22 19:45 72 21 98 06/29/22 19:30 68 22 98 06/29/22 19:30 113/63 06/29/22 19:00 71 13 97 06/29/22 19:00 106/63 06/29/22 18:30 72 16 99 06/29/22 18:30 110/72 O2 Del Method 06/30/22 03:00 Room Air 06/30/22 02:00 06/30/22 00:29 Room Air 06/30/22 00:29 Room Air 06/29/22 22:03 Room Air 06/29/22 21:59 06/29/22 21:58 06/29/22 19:45 06/29/22 19:30 06/29/22 19:30 06/29/22 19:00 06/29/22 19:00 06/29/22 18:30 06/29/22 18:30 PG Care Time/CCT Total # of Minutes Spent Total Time Spent with Patient: Total time spent is greater than 50% in coordination of care (as documented) at patient's floor/unit and/or counseling patient: Coding Level of Care Code 33877 Inpt Consult Level 5 Diagnoses Pancreatitis K85.90
[2022-06-30 06:27] LABS: Albumin Globulin Ratio 1.4 (0.9-2); Albumin Level 3.1 gm/dl (3.4-5.0); Bilirubin,Total 0.4 mg/dl (0.2-1.0); Calcium 7.7 mg/dl (8.5-10.1); Chol HDL Ratio 2.1 (0-5); Creatinine Clr Calc Pharmacy 155.8 ml/min; Est GFR (African American) 143.7 ml/min; Globulin 2.2 gm/dl (2.5-4.0); Potassium 3.9 mmol/L (3.5-5.1); Total Protein 5.3 gm/dl (6.0-8.3)
--- NOTE | 2022-06-30 07:53 | Electrocardiogram Report ---
Test Reason : Blood Pressure : / mmHG Vent. Rate : 069 BPM Atrial Rate : 069 BPM P-R Int : 138 ms QRS Dur : 068 ms QT Int : 410 ms P-R-T Axes : 046 006 008 degrees QTc Int : 439 ms Poor data quality, interpretation may be adversely affected Sinus rhythm with Premature atrial complexes Low voltage QRS Poor R wave progression, consider anterior MN vs. lead placement vs. LVH Abnormal ECG No previous ECGs available Confirmed by Elvis Garcia ([id number]) on 06/30/2022 7:53:04 AM Referred By: Confirmed By:Elvis Garcia
[2022-06-30 07:56] LABS: Estimated Average Glucose 100 mg/dl; Hemoglobin A1C 5.1 % (4.5-5.6)
--- NOTE | 2022-06-30 08:51 | Gastrointestinal Consultation ---
Date of Consultation June 30, 2022 Assessment & Plan (1) Pancreatitis: Plan 31 year old female with history of obesity, PCOS admitted w/ pain, nausea/vomiting imaging concerning for gallstones, cholecystitis and pancreatic infiltration. She has AST/ALT elevation, lipase 4595 --> 240. Suspect she passed a gallstone. NPO MRCP If MRCP negative, would proceed to [facility] as planned by general surgery LR 200 mL/hr Antiemetics PRN Analgesia PRN Supervising Physician Co-Signing Physician Notes I saw and evaluated the patient. We were consulted for evaluation of abdominal pain in the setting of an AST and ALT elevation. Patient notes that she has had intermittent symptoms for several weeks and notes that the symptoms are much improved this morning. She is scheduled to have a cholecystectomy performed on Wednesday PE: No icterus Abd: soft Impression: Patient with symptomatic Cholelithiasis, I suspect that the patient likely passed a stone in the recent past. Would recommend MRCP for further evaluation, if negative would then suggest proceeding with cholecystectomy. The patient's lipase does appear to be significantly improved overnight I would recommend continued IV hydration. Please call with any additional questions or concerns, GI to sign off.. History of Present Illness Reason for Consultation: gallstone panc Requesting Physician: Aravind Attending Physician: Karlos Nazario MD History of Present Illness 31 year old female with history of obesity, PCOS admitted w/ pain, nausea/vomiting imaging concerning for cholecystitis and pancreatic infiltration. GI was asked to evaluate given elevated AST/ALT and CT changes to pancreas. Pt was seen and evaluated, chart reviewed. Notes that she is feeling better. Pain, nausea/vomiting resolved! No change in bowel/bladder habits. No fever, chills, CP, SOB. ABD US 2021: There is no intra or extrahepatic biliary ductal dilatation. CTAP 2021: There is postsurgical change consistent with a Karri-en-Y gastric bypass procedure.he proximal jejunum above the anastomosis is mildly distended and fluid-filled. The distal small bowel is relatively decompressed. No discrete transition point is identified. Low-grade or developing obstruction is not excluded. Clinical correlation will be essential. The gallbladder is distended and contains gallstones. Mild gallbladder wall thickening is nonspecific and may be related to periportal edema. Correlate with clinical and laboratory findings. If there is concern for acute cholecystitis a right upper quadrant ultrasound should be obtained. Question mild peripancreatic infiltration. Correlate with clinical findings and serum amylase/lipase levels for evidence of pancreatitis. Allergies Allergy/AdvReac Type Severity Reaction Status Date / Time Penicillins Allergy Unknown OCCURED Verified 06/29/22 15:55 A CHILD Home Medications Medication Instructions Recorded Confirmed Type bupropion HCl 75 mg tablet 75 mg PO BID 06/29/22 06/29/22 History calcium carb-ergocalciferol (vit 1 tab PO BID 06/29/22 06/29/22 History D2) 600 mg calcium-200 unit tablet cyanocobalamin (vitamin B-12) 1,000 mcg IM Q28D 06/29/22 06/29/22 History 1,000 mcg/mL injection solution etonogestrel 0.12 mg-ethinyl 1 vag ring vaginal UD 06/29/22 06/29/22 History estradiol 0.015 mg/24 hr vaginal ring (EluRyng) lysine 1,000 mg tablet 1,000 mg PO DAILY 06/29/22 06/29/22 History pantoprazole 40 mg tablet,delayed 40 mg PO QAM 06/29/22 06/29/22 History release Patient History Medical History Acute pancreatitis Environmental and seasonal allergies Gallstone Obesity PCOS (polycystic ovarian syndrome) Surgical History H/O gastric bypass H/O wisdom tooth extraction History of tonsillectomy Family History Father Diabetes Social History Smoking Status: Never smoker Hx Alcohol Use: No Hx Substance Use: No Preferred Language: Sami Communication Ability: Effective Scale Operator Required: No Beliefs That Will Affect Care: None Current Living Situation: Alone Other Information That Helps Us Care for You: No Feels Safe at Home: Yes Review of Systems Review of Systems: All systems reviewed & are unremarkable except as noted in HPI & below Physical Exam Constitutional: WD/WN, vitals as above Respiratory: normal respiratory effort, lungs clear to auscultation Cardiovascular: RRR, no murmur, no edema Gastrointestinal (Abdomen): normal bowel sounds, soft, nontender, no hepatosplenomegaly Skin: no rashes, warm and dry Results & Data ([facility]) Vital Signs (Past 12 Hours) Vital Signs Temp Pulse Pulse Resp BP BP Pulse Ox 06/30/22 07:46 37.0 C 67 16 96/63 L 98 06/30/22 03:00 36.6 C 65 18 94/55 L 99 06/30/22 02:00 64 06/30/22 00:29 06/30/22 00:29 36.7 C 64 16 96 06/29/22 22:03 06/29/22 21:59 98 06/29/22 21:58 99/59 L O2 Del Method 06/30/22 07:46 Room Air 06/30/22 03:00 Room Air 06/30/22 02:00 06/30/22 00:29 Room Air 06/30/22 00:29 Room Air 06/29/22 22:03 Room Air 06/29/22 21:59 06/29/22 21:58 Laboratory Results 06/30/22 06/30/22 06/30/22 Range/Units 05:29 05:29 05:29 WBC 7.29 (4.8-10.8) K/ul RBC 3.59 L (3.93-5.22) M/uL Hgb 10.6 L (12.0-16.0) g/dl Hct 31.2 L (34.1-44.9) % MCV 86.9 (80.0-100.0) fL MCH 29.5 (25.0-34.0) pg MCHC 34.0 (32.0-36.0) g/dL RDW Std Deviation 40.4 (36.4-46.3) fL RDW Coeff of Paula 12.7 (11.5-14.5) % Plt Count 209 (130-400) K/uL MPV 12.2 (9.4-12.3) fL Immature Gran % (Auto) 1.2 % Neut % (Auto) 59.5 % Lymph % (Auto) 29.4 % [place] % (Auto) 6.6 % Eos % (Auto) 2.2 % Baso % (Auto) 1.1 % Neut # (Auto) 4.34 (1.4-6.5) K/uL Lymph # (Auto) 2.14 (1.2-3.4) K/uL [place] # (Auto) 0.48 (0.24-0.82) K/uL Eos # (Auto) 0.16 (0-0.50) K/uL Baso # (Auto) 0.08 (0-0.2) K/uL Immature Gran # (Auto) 0.09 H (0.00-0.02) K/uL Sodium 138 (136-145) mmol/L Potassium 3.9 (3.5-5.1) mmol/L Chloride 110 H (98-107) mmol/L Carbon Dioxide 24 (21-32) mmol/L Anion Gap 4 (3-11) BUN 7 (6-23) mg/dl Creatinine 0.54 L (0.6-1.2) mg/dl Est Cr Clr Drug Dosing 155.8 ml/min Est GFR ( Amer) 143.7 ml/min Est GFR (Non-Af Amer) 124.0 ml/min BUN/Creatinine Ratio 13.0 (10-20) Glucose 77 (70-99(Fasting)) mg/dl Estimat Average Glucose 100 mg/dl Hemoglobin A1c 5.1 (4.5-5.6) % Calcium 7.7 L (8.5-10.1) mg/dl Magnesium 2.0 (1.7-2.4) mg/dl Total Bilirubin 0.4 (0.2-1.0) mg/dl AST 59 H (13-39) U/L ALT 69 H (7-52) U/L Alkaline Phosphatase 54 (34-104) U/L Total Protein 5.3 L D (6.0-8.3) gm/dl Albumin 3.1 L (3.4-5.0) gm/dl Globulin 2.2 L (2.5-4.0) gm/dl Albumin/Globulin Ratio 1.4 (0.9-2) Triglycerides 86 (0-150) mg/dl Cholesterol 135 (0-200) mg/dl LDL Cholesterol, Calc 54 mg/dl VLDL Cholesterol, Calc 17 (0-30) mg/dl HDL Cholesterol 64 mg/dl Cholesterol/HDL Ratio 2.1 (0-5) Lipase 240 H (11-82) U/L HCG, Qual (Negative) SARS-CoV-2, RNA, NAAT (NEGATIVE) 06/29/22 06/29/22 06/29/22 Range/Units 18:53 15:33 15:33 WBC (4.8-10.8) K/ul RBC (3.93-5.22) M/uL Hgb (12.0-16.0) g/dl Hct (34.1-44.9) % MCV (80.0-100.0) fL MCH (25.0-34.0) pg MCHC (32.0-36.0) g/dL RDW Std Deviation (36.4-46.3) fL RDW Coeff of Paula (11.5-14.5) % Plt Count (130-400) K/uL MPV (9.4-12.3) fL Immature Gran % (Auto) % Neut % (Auto) % Lymph % (Auto) % [place] % (Auto) % Eos % (Auto) % Baso % (Auto) % Neut # (Auto) (1.4-6.5) K/uL Lymph # (Auto) (1.2-3.4) K/uL [place] # (Auto) (0.24-0.82) K/uL Eos # (Auto) (0-0.50) K/uL Baso # (Auto) (0-0.2) K/uL Immature Gran # (Auto) (0.00-0.02) K/uL Sodium 138 (136-145) mmol/L Potassium 4.1 (3.5-5.1) mmol/L Chloride 107 (98-107) mmol/L Carbon Dioxide 25 (21-32) mmol/L Anion Gap 6 (3-11) BUN 11 (6-23) mg/dl Creatinine 0.68 (0.6-1.2) mg/dl Est Cr Clr Drug Dosing 123.7 ml/min Est GFR ( Amer) 133.2 ml/min Est GFR (Non-Af Amer) 114.9 ml/min BUN/Creatinine Ratio 16.2 (10-20) Glucose 118 H (70-99(Fasting)) mg/dl Estimat Average Glucose mg/dl Hemoglobin A1c (4.5-5.6) % Calcium 8.2 L (8.5-10.1) mg/dl Magnesium (1.7-2.4) mg/dl Total Bilirubin 0.4 (0.2-1.0) mg/dl AST 42 H (13-39) U/L ALT 20 (7-52) U/L Alkaline Phosphatase 61 (34-104) U/L Total Protein 7.1 (6.0-8.3) gm/dl Albumin 4.2 (3.4-5.0) gm/dl Globulin 2.9 (2.5-4.0) gm/dl Albumin/Globulin Ratio 1.4 (0.9-2) Triglycerides (0-150) mg/dl Cholesterol (0-200) mg/dl LDL Cholesterol, Calc mg/dl VLDL Cholesterol, Calc (0-30) mg/dl HDL Cholesterol mg/dl Cholesterol/HDL Ratio (0-5) Lipase 4595 H (11-82) U/L HCG, Qual Negative (Negative) SARS-CoV-2, RNA, NAAT NEGATIVE (NEGATIVE) 06/29/22 Range/Units 15:33 WBC 9.96 (4.8-10.8) K/ul RBC 4.47 (3.93-5.22) M/uL Hgb 13.2 (12.0-16.0) g/dl Hct 38.9 (34.1-44.9) % MCV 87.0 (80.0-100.0) fL MCH 29.5 (25.0-34.0) pg MCHC 33.9 (32.0-36.0) g/dL RDW Std Deviation 40.8 (36.4-46.3) fL RDW Coeff of Paula 12.9 (11.5-14.5) % Plt Count 293 (130-400) K/uL MPV 12.3 (9.4-12.3) fL Immature Gran % (Auto) 0.4 % Neut % (Auto) 63.3 % Lymph % (Auto) 28.0 % [place] % (Auto) 5.4 % Eos % (Auto) 2.0 % Baso % (Auto) 0.9 % Neut # (Auto) 6.30 (1.4-6.5) K/uL Lymph # (Auto) 2.79 (1.2-3.4) K/uL [place] # (Auto) 0.54 (0.24-0.82) K/uL Eos # (Auto) 0.20 (0-0.50) K/uL Baso # (Auto) 0.09 (0-0.2) K/uL Immature Gran # (Auto) 0.04 H (0.00-0.02) K/uL Sodium (136-145) mmol/L Potassium (3.5-5.1) mmol/L Chloride (98-107) mmol/L Carbon Dioxide (21-32) mmol/L Anion Gap (3-11) BUN (6-23) mg/dl Creatinine (0.6-1.2) mg/dl Est Cr Clr Drug Dosing ml/min Est GFR ( Amer) ml/min Est GFR (Non-Af Amer) ml/min BUN/Creatinine Ratio (10-20) Glucose (70-99(Fasting)) mg/dl Estimat Average Glucose mg/dl Hemoglobin A1c (4.5-5.6) % Calcium (8.5-10.1) mg/dl Magnesium (1.7-2.4) mg/dl Total Bilirubin (0.2-1.0) mg/dl AST (13-39) U/L ALT (7-52) U/L Alkaline Phosphatase (34-104) U/L Total Protein (6.0-8.3) gm/dl Albumin (3.4-5.0) gm/dl Globulin (2.5-4.0) gm/dl Albumin/Globulin Ratio (0.9-2) Triglycerides (0-150) mg/dl Cholesterol (0-200) mg/dl LDL Cholesterol, Calc mg/dl VLDL Cholesterol, Calc (0-30) mg/dl HDL Cholesterol mg/dl Cholesterol/HDL Ratio (0-5) Lipase (11-82) U/L HCG, Qual (Negative) SARS-CoV-2, RNA, NAAT (NEGATIVE)
[2022-06-30] MEDS ORDERED: NON-FORMULARY MEDICATION (Lysine 1,000 mg Tablet) PO SCH (09:00)
[2022-06-30] MEDS: PANTOprazole 40 MG TAB PO SCH (09:09)
[2022-06-30] MEDS ORDERED: SINCALIDE IV STA (11:06)
[2022-06-30] MEDS ORDERED: SODIUM CHLORIDE 0.9% IV STA (11:06)
--- NOTE | 2022-06-30 14:38 | Magnetic Resonance Report ---
MR MRCP HISTORY: elevate AST/ALT, rule out CBD stone TECHNIQUE: MRCP of the abdomen was performed according to standard department protocol without the us e of intravenous contrast. COMPARISON STUDY: Abdomen and pelvis CT 06/29/2022. FINDINGS: Mild motion artifact. The lung bases are clear. The liver, spleen, adrenal glands, and kidn eys are unremarkable. No hydronephrosis. The main portal vein appears patent. Normal caliber abdomina l aorta. No retroperitoneal lymphadenopathy. Focal area of intussusception within the jejunum best se en on image 64. This was not present on the prior study and is typically considered a transient pheno conchita in an adult. No dilated loops of bowel to suggest an obstruction. Small amount of pericholecyst ic fluid, unchanged. There is small amount of edema/inflammatory change surrounding the pancreatic he ad. The pancreatic head appears slightly edematous. Multiple small gallstones again noted. The common bile duct appears be normal and caliber measuring 3 mm. The distal common bile duct is nondiagnostic due to motion artifact. Otherwise, no definite filling defects seen within the common bile duct. No definite gallbladder wall thickening. The main pancreatic duct is not well visualized due to the gregg on artifact but likely normal in caliber. IMPRESSION: 1. Suboptimal study due to the motion artifact. 2. Small amount of edema/inflammatory change surrounding the pancreatic head. The pancreatic head handy ears slightly edematous. Therefore, this likely represents an acute pancreatitis. Recommend correlati on with pancreatic enzymes. An adjacent duodenitis could also have a similar appearance but is consid ered less likely. 3. The distal common bile duct is nondiagnostic due to motion artifact. However, common bile duct is normal in caliber. 4. Cholelithiasis. Small amount of pericholecystic fluid is again noted. This is likely due to the bullock spected pancreatitis. Acute cholecystitis is considered less likely but not entirely excluded. ACT 112: Negative or not required by law. Electronically signed by: Bryan De La Cruz M.D. 06/30/2022 2:36 PM
--- NOTE | 2022-06-30 14:39 | Hospitalist Progress Note ---
Date of Service June 30, 2022 Assessment & Plan (1) Acute pancreatitis: Plan: Gallstone pancreatitis Possible abdominal pain small bowel obstruction Concern for acute cholecystitis H/O gastric bypass --CT ABD:There is postsurgical change consistent with a Karri-en-Y gastric bypass procedure. The proximal jejunum above the anastomosis is mildly distended and fluid-filled. The distal small bowel is relatively decompressed. No discrete transition point is identified. Low-grade or developing obstruction is not excluded. Clinical correlation will be essential. The gallbladder is distended and contains gallstones. Mild gallbladder wall thickening is nonspecific and may be related to periportal edema. Correlate with clinical and laboratory findings. If there is concern for acute cholecystitis a right upper quadrant ultrasound should be obtained. Question mild peripancreatic infiltration. Correlate with clinical findings and serum amylase/lipase levels for evidence of pancreatitis. --Gall Bladder USD: cholelithiasis within a mildly thick-walled and distended gallbladder. A sonographic Pacheco's sign is reportedly absent. Findings are equivocal for acute cholecystitis, which is not excluded. If there is strong clinical concern for cholecystitis a nuclear hepatobiliary scan should be considered. There is no intra or extrahepatic biliary ductal dilatation. Nonvisualization of the pancreas. --Mild transaminitis --Normal Lipid Panel --NPO for now Continue IV fluids HIDA, MRCP pending Appreciate GI, Surgery Input Continue cefepime, Flagyl Pain control Monitor LFTs Likely plan for laparoscopic cholecystectomy tomorrow Anxiety and Depression Continue Bupropion Polycystic ovarian syndrome Irritable bowel syndrome Obesity S/P Gastric Bypass Stable DVT Px: SCDs for now Code Status Full Code Admission and Anticipated Discharge Date Admission Date: June 29, 2022 Subjective Patient is seen and examined at bedside States feeling well today Offers no complaints Denies any chest pain, shortness of breath, dizziness, nausea, abdominal pain Review of Systems Review of Systems: All systems reviewed & are unremarkable except as noted in Subjective Physical Exam Physical Exam: Physical Exam: Vitals signs as noted above General Appearance:Moderately built and nourished, no apparent distress Head: normocephalic, Atraumatic Eyes: normal inspection, EOMI Neck: supple, Trachea midline Respiratory/Chest: Normal breath sounds, CTA, No accessory muscle use Cardiovascular: S1, S2, No murmur Abdomen/GI:Soft, non tender, Bowel sounds present Extremities/Musculoskeletal:normal inspection, no edema Neurologic/Psych:AAOX3, grossly no focal neurological deficits Skin: normal color, warm Results & Data Results & Data ([facility]) Vital Signs (Past 12 Hours) Vital Signs Temp Pulse Resp BP Pulse Ox O2 Del Method 06/30/22 07:46 37.0 C 67 16 96/63 L 98 Room Air 06/30/22 03:00 36.6 C 65 18 94/55 L 99 Room Air Laboratory Results Short CBC 06/29/22 06/30/22 Range/Units 15:33 05:29 WBC 9.96 7.29 (4.8-10.8) K/ul Hgb 13.2 10.6 L (12.0-16.0) g/dl Hct 38.9 31.2 L (34.1-44.9) % Plt Count 293 209 (130-400) K/uL BMP 06/29/22 06/30/22 15:33 05:29 Sodium 138 138 Potassium 4.1 3.9 Chloride 107 110 H Carbon Dioxide 25 24 BUN 11 7 Creatinine 0.68 0.54 L Glucose 118 H 77 Calcium 8.2 L 7.7 L Liver Function 06/29/22 06/30/22 Range/Units 15:33 05:29 Total Bilirubin 0.4 0.4 (0.2-1.0) mg/dl AST 42 H 59 H (13-39) U/L ALT 20 69 H (7-52) U/L Alkaline Phosphatase 61 54 (34-104) U/L Albumin 4.2 3.1 L (3.4-5.0) gm/dl
--- NOTE | 2022-06-30 18:17 | Nuclear Medicine Report ---
NM hepatobiliary EF CLINICAL HISTORY: 31 years-old Female with Acute cholecystitis. Acute right upper quadrant abdominal pain TECHNIQUE: Following the intravenous administration of 5.3 mCi of technetium-99m Choletec, sequentia l abdominal images were obtained. In order to evaluate the contractile response of the gallbladder, 1.62 mcg of Kinevac was administered by slow intravenous infusion over 30 min starting approximately 60 min after the administration of the radiopharmaceutical. Sequential imaging was continued for 45 min after the start of the Kinevac infusion. COMPARISON: CT abdomen and pelvis 06/29/2022 FINDINGS: There is prompt, uniform accumulation of the tracer by the liver. There is normal filling of the int rahepatic ducts, common bile duct and gallbladder and normal excretion of the tracer into the duodenu m. There is normal contraction of the gallbladder. The calculated gallbladder ejection fraction is 97% (normal >40%). There is mild enterogastric reflux. IMPRESSION: 1. Normal contractile response of the gallbladder to Kinevac infusion. 2. Normal biliary imaging study. ACT 112: Negative or not required by law. The above report was generated using voice recognition software. It may contain grammatical, syntax o r spelling errors. Electronically signed by: Surendra Hunt M.D. 06/30/2022 6:16 PM
[2022-07-01] MEDS: metroNIDAZOLE 500 MG/100 ML BAG IV SCH ×3 (00:13→15:21)
[2022-07-01] MEDS: CEFEPIME 2,000 MG in SYRINGE 0 ML IV SCH ×3 (00:13→15:22)
[2022-07-01] MEDS: LACTATED RINGER'S 1,000 ML IV SCH ×3 (01:19→11:00)
[2022-07-01 05:13] LABS: Basophils # (auto) 0.05 K/uL (0-0.2); Basophils % (auto) 0.8 %; Eosinophils # (auto) 0.11 K/uL (0-0.50); Eosinophils % (auto) 1.8 %; Hematocrit (blood only) 30.1 % (34.1-44.9); Hemoglobin 10.3 g/dl (12.0-16.0); Immature Granulocytes # (auto) 0.03 K/uL (0.00-0.02); Immature Granulocytes % (auto) 0.5 %; Lymphocytes # (auto) 1.99 K/uL (1.2-3.4); Lymphocytes % (auto) 32.1 %; Mean Corpuscular Hemoglobin 29.5 pg (25.0-34.0); Mean Corpuscular Hgb Conc 34.2 g/dL (32.0-36.0); Mean Corpuscular Volume 86.2 fL (80.0-100.0); Mean Platelet Volume 12.3 fL (9.4-12.3); Monocytes # (auto) 0.46 K/uL (0.24-0.82); Monocytes % (auto) 7.4 %; Neutrophils # (auto) 3.56 K/uL (1.4-6.5); Neutrophils % (auto) 57.4 %; Platelet Count 189 K/uL (130-400); RDW Coefficient of Variation 12.9 % (11.5-14.5); RDW Standard Deviation 40.2 fL (36.4-46.3); Red Blood Count 3.49 M/uL (3.93-5.22)
[2022-07-01 05:38] LABS: Albumin Globulin Ratio 1.5 (0.9-2); Albumin Level 3.1 gm/dl (3.4-5.0); BUN Creatinine Ratio 11.8 (10-20); Bilirubin Direct 0.1 mg/dl (0-0.2); Bilirubin,Total 0.5 mg/dl (0.2-1.0); Calcium 7.7 mg/dl (8.5-10.1); Est GFR (African American) 146.4 ml/min; Est GFR (Non-African American) 126.3 ml/min; Globulin 2.1 gm/dl (2.5-4.0); Potassium 3.8 mmol/L (3.5-5.1); Total Protein 5.2 gm/dl (6.0-8.3)
--- NOTE | 2022-07-01 06:50 | History & Physical Bridge Note ---
Date of Service July 01, 2022 History & Physical Bridge Note I have examined the patient, reviewed the History & Physical and in the interval since the performance of the History & Physical I have noted the following changes of clinical significance: no changes noted
--- NOTE | 2022-07-01 06:52 | Anesthesiology Consultation ---
Date of Service July 01, 2022 Assessment & Plan (1) Encounter for pre-operative examination: Chart Review Chart Review: Acceptable Risk for Surgery History Surgery Operation Date: 07/01/22 07:15 Proposed Procedures p Laparoscopic Cholecystectomy with Cholangiogram - Chavo Cannon MD, FACS Height/Weight Height: 5 ft 5 in Weight: 76.1 kg Allergies Allergy/AdvReac Type Severity Reaction Status Date / Time Penicillins Allergy Unknown OCCURED Verified 06/29/22 15:55 A CHILD Medications Home Medications Medication Instructions Recorded Confirmed Last Taken bupropion HCl 75 mg tablet 75 mg PO BID 06/29/22 06/29/22 Unknown calcium carb-ergocalciferol (vit 1 tab PO BID 06/29/22 06/29/22 Unknown D2) 600 mg calcium-200 unit tablet cyanocobalamin (vitamin B-12) 1,000 mcg IM Q28D 06/29/22 06/29/22 Unknown 1,000 mcg/mL injection solution etonogestrel 0.12 mg-ethinyl 1 vag ring vaginal UD 06/29/22 06/29/22 Unknown estradiol 0.015 mg/24 hr vaginal ring (EluRyng) lysine 1,000 mg tablet 1,000 mg PO DAILY 06/29/22 06/29/22 Unknown pantoprazole 40 mg tablet,delayed 40 mg PO QAM 06/29/22 06/29/22 Unknown release Active Medications Generic Name Dose Route Start Last Admin Trade Name Freq PRN Reason Stop Dose Admin Acetaminophen 650 mg 06/29/22 22:41 06/30/22 20:11 Acetaminophen 325 Mg Tab PO 07/29/22 22:40 650 mg Q4H PRN Administration Pain or Fever Bupropion HCl 75 mg 06/29/22 22:41 06/30/22 20:15 Bupropion Hcl 75 Mg Tablet PO 07/29/22 22:40 75 mg BID MIMI Administration Calcium/Vitamin D 1 tab 06/29/22 22:41 06/30/22 20:10 Calcium 600mg + Vit D 400 Iu Tab PO 07/29/22 22:40 1 tab BID MIMI Administration Lactated Ringer's 1,000 mls @ 200 mls/hr 06/29/22 22:41 07/01/22 05:53 Lr IV 07/29/22 22:40 200 mls/hr .Q5H MIMI Administration Cefepime HCl 2,000 mg/ Syringe 20 mls @ 5 mls/min 06/29/22 23:00 07/01/22 00:13 IV 07/09/22 22:59 5 mls/min Q8H MIMI Administration Protocol Metronidazole 500 mg in 100 mls @ 100 mls/hr 06/29/22 23:00 07/01/22 01:19 Flagyl IV 07/09/22 22:59 Infused Q8H MIMI Infusion Pantoprazole Sodium 40 mg 06/30/22 09:00 06/30/22 09:09 Pantoprazole 40 Mg Tab PO 07/30/22 08:59 40 mg QAM MIMI Administration NPO Date Last Intake of Fluids: 06/30/22 Time Last Intake of Fluids: 20:00 Date Last Intake of Solids: 06/29/22 Time Last Intake of Solids: 13:30 Past Medical History Medical History Acute pancreatitis Environmental and seasonal allergies Gallstone Obesity PCOS (polycystic ovarian syndrome) Past Family History Family History Father Diabetes Past Surgical History Surgical History H/O gastric bypass H/O wisdom tooth extraction History of tonsillectomy Social History Smoking Status: Never smoker Hx Alcohol Use: No Hx Substance Use: No Physical Exam Vital Signs Last Vital Signs Temp 36.9 C 07/01/22 06:43 Pulse 65 07/01/22 06:43 Resp 18 07/01/22 06:43 BP 106/63 07/01/22 06:43 Pulse Ox 100 07/01/22 06:43 O2 Del Method 07/01/22 06:43 Testing Laboratory Results 07/01/22 04:31 07/01/22 04:31 Hemoglobin A1c 5.1 % (4.5-5.6) 06/30/22 05:29 06/29/22 22:56 Aerobic Blood Culture - Preliminary Blood No growth in Aerobic bottle after 24 hours. Anaerobic Blood Culture - Preliminary No growth in Anaerobic bottle after 24 hours. 06/29/22 23:04 Aerobic Blood Culture - Final Blood Anaerobic Blood Culture - Preliminary No growth in Anaerobic bottle after 24 hours.
[2022-07-01] MEDS ORDERED: fentaNYL citrate 100 MCG/2 ML VIAL ONE ×2 (06:56→07:48)
[2022-07-01] MEDS ORDERED: MIDAZOLAM HCL 1 MG/ML 2ML VIAL ONE (06:56)
[2022-07-01] MEDS ORDERED: ROCURONIUM BROMIDE 10 MG/ML 5 ML VIAL IV ONE (06:56)
[2022-07-01] MEDS ORDERED: PROPOFOL IV EMULSION 10 MG/ML 20 ML VIAL IV ONE (06:56)
[2022-07-01] MEDS ORDERED: LIDOCAINE 2% 20 MG/ML 5 ML SYR IV ONE (06:56)
[2022-07-01] MEDS ORDERED: ACETAMINOPHEN 1000 MG/100 ML IV IV ONE (06:59)
[2022-07-01] MEDS ORDERED: PROMETHAZINE HCL 12.5 MG in SODIUM CHLORIDE 0.9% 50 ML IV PRN (07:00)
[2022-07-01] MEDS ORDERED: ATROPINE SULFATE 0.1 MG/ML 10ML SYR IV PRN (07:00)
[2022-07-01] MEDS ORDERED: ONDANSETRON INJ 2 MG/ML 2 ML VIAL IV PRN ×2 (07:00→10:44)
[2022-07-01] MEDS ORDERED: BUPIVACAINE 0.5 % 5 MG/1 ML MPF 30ML VIAL ONE (07:07)
[2022-07-01] MEDS ORDERED: DEXAMETHASONE SOD INJ 4 MG/ML VIAL ONE (08:10)
[2022-07-01] MEDS ORDERED: ONDANSETRON INJ 2 MG/ML 2 ML VIAL ONE (08:10)
[2022-07-01] MEDS ORDERED: GLYCOPYRROLATE 0.2 MG/ML VIAL ONE (08:10)
[2022-07-01] MEDS ORDERED: NEOSTIGMINE METHYLSULFATE 1 MG/ML 10ML VIAL ONE (08:10)
[2022-07-01] MEDS ORDERED: OPTIRAY 300 IV ONE (08:16)
--- NOTE | 2022-07-01 08:18 | Post Operative Brief Note ---
PG Immediate Post Op with CF Date of Surgery July 01, 2022 Pre & Post Diagnosis Operation Date: 07/01/22 07:15 Pre-Op Diagnosis: Pancreatitis, Acute Cholecystitis Post-Op Diagnosis: Pancreatitis, Acute Cholecystitis I identified the patient and participated in the time-out.: Yes Procedure Operation Date: 07/01/22 07:15 Actual Procedures p Laparoscopic Cholecystectomy with Cholangiogram(Not Applicable) - Chavo Cannon MD, FACS Surgeon Chavo Cannon MD, FACS Nuclear Fuel Enrichment Technician Wilmer Cheng Estimated Blood Loss 10 Findings Consistent with Post-Op Diagnosis Thickened gallbladder with no filling defects on cholangiogram and good flow into the duodenum Specimens Specimen Description: A: Galbladder and contents
[2022-07-01] MEDS: fentaNYL citrate 100 MCG/2 ML VIAL IV PRN ×4 (08:38→09:06)
[2022-07-01] MEDS: PANTOprazole 40 MG TAB PO SCH (09:00)
[2022-07-01] MEDS: CALCIUM 600MG + VIT D 400 IU TAB PO SCH ×2 (09:00→22:48)
[2022-07-01] MEDS: buPROPion HCl 75 MG TABLET PO SCH ×2 (09:00→22:46)
--- NOTE | 2022-07-01 09:32 | Operative Report (OR) ---
DATE OF OPERATION: 07/01/2022. NAME OF OPERATION: Laparoscopic cholecystectomy with intraoperative cholangiogram. PREOPERATIVE DIAGNOSIS: Acute cholecystitis and gallstone pancreatitis. POSTOPERATIVE DIAGNOSIS: Acute cholecystitis and gallstone pancreatitis. STAFF SURGEON: Chavo Cannon MD. MOBILE HEAVY EQUIPMENT OPERATOR: Salena Cheng PA-C. ANESTHESIA: General. DESCRIPTION OF PROCEDURE: The patient was brought in the operating room and placed on the operating table in supine position. Her abdomen was prepped and draped in the usual fashion. Pneumatic stocki ngs were placed. My junior sales assistant helped with prepping, draping, removal of the gallbladder and closure of the wounds. Incision was made above the umbilicus, carrying dissection down through significant a dipose tissue to the fascia, placing a Veress needle producing pneumoperitoneum. An [address] d at this level. Under visualization, three 5 mm ports were placed, one cephalad and two laterally. Gallbladder was severely distended and thickened. It was aspirated of bile. It was retracted. The re were stones in the neck of the gallbladder. The dissection carried out to the luis a hepatis, iden tifying the cystic duct, which was clipped next to the gallbladder, it was then opened and cholangiog eduardo performed. I did not see any filling defects with good flow into the duodenum. The cystic duct was clipped and transected. The cystic artery identified, clipped and transected. I also was able t o identify the common hepatic artery. The gallbladder was then dissected away from the liver bed in the usual fashion, placed in an Endobag. I did have to enlarge the fascial defect to remove the gall bladder at the umbilical site. After appropriate irrigation and hemostasis, all ports were removed. Fascia at the umbilicus closed using 0 PDS suture. The skin was reapproximated using subcuticular 4 -0 Monocryl with Dermabond. The patient was transferred to recovery room in stable condition. Job ID: [id number]
[2022-07-01] MEDS ORDERED: HYDROmorphone INJ 1 MG/ML SYRINGE ONE (09:35)
[2022-07-01] MEDS: HYDROmorphone INJ 1 MG/ML SYRINGE IV PRN ×4 (09:35→09:50)
[2022-07-01] MEDS ORDERED: ACETAMINOPHEN 325 MG TAB PO PRN (10:44)
[2022-07-01] MEDS ORDERED: HYDROCODONE/ACETAMOPHEN 5/325MG TAB PO PRN (10:44)
--- NOTE | 2022-07-01 11:08 | Anesthesiology Progress Note ---
Date of Service July 01, 2022 Anesthesia Post Procedure Vital Signs Vital Signs: Temp Pulse Pulse Pulse Resp BP Pulse Ox 07/01/22 10:00 36.7 C 66 14 114/72 95 07/01/22 09:50 71 13 119/73 95 07/01/22 09:40 74 11 L 128/77 95 07/01/22 09:20 74 18 120/79 96 07/01/22 09:30 71 17 120/77 96 07/01/22 09:10 36.3 C L 75 18 118/73 96 07/01/22 09:00 67 19 129/78 99 07/01/22 08:50 65 15 116/74 99 07/01/22 08:40 71 14 119/72 100 07/01/22 08:32 36.1 C L 91 H 14 128/83 100 07/01/22 07:53 68 07/01/22 06:43 36.9 C 65 18 106/63 100 07/01/22 02:50 36.8 C 80 16 94/58 L 97 06/30/22 23:52 56 L 06/30/22 22:55 36.6 C 73 16 94/58 L 98 06/30/22 19:33 36.6 C 67 16 103/66 97 06/30/22 17:38 74 06/30/22 14:43 37.0 C 65 16 96/62 L 96 O2 Del Method O2 Flow Rate 07/01/22 10:00 Room Air 07/01/22 09:50 Room Air 07/01/22 09:40 Room Air 07/01/22 09:20 Room Air 07/01/22 09:30 Room Air 07/01/22 09:10 Room Air 07/01/22 09:00 Oxymask 2 07/01/22 08:50 Oxymask 4 07/01/22 08:40 Oxymask 6 07/01/22 08:32 Oxymask 6 07/01/22 07:53 07/01/22 06:43 Room Air 07/01/22 02:50 Room Air 06/30/22 23:52 06/30/22 22:55 Room Air 06/30/22 19:33 Room Air 06/30/22 17:38 06/30/22 14:43 Room Air Pain Intensity Abdomen: Pain Intensity: 2 Bilateral Head: Pain Intensity: 8 Transfer of Care Handoff Completed per policy Notes Mental Status: alert / awake / arousable Patient Amnestic to Procedure: Yes Nausea / Vomiting: adequately controlled Pain: adequately controlled Airway Patency, RR, SpO2: stable & adequate BP & HR: stable & adequate Hydration State: stable & adequate Anesthetic Complications: no major complications apparent
--- NOTE | 2022-07-01 15:48 | Hospitalist Progress Note ---
Date of Service July 01, 2022 Assessment & Plan (1) Acute pancreatitis: Plan: Gallstone pancreatitis Possible abdominal pain small bowel obstruction Acute cholecystitis-POA H/O gastric bypass --CT ABD:There is postsurgical change consistent with a Karri-en-Y gastric bypass procedure. The proximal jejunum above the anastomosis is mildly distended and fluid-filled. The distal small bowel is relatively decompressed. No discrete transition point is identified. Low-grade or developing obstruction is not excluded. Clinical correlation will be essential. The gallbladder is distended and contains gallstones. Mild gallbladder wall thickening is nonspecific and may be related to periportal edema. Correlate with clinical and laboratory findings. If there is concern for acute cholecystitis a right upper quadrant ultrasound should be obtained. Question mild peripancreatic infiltration. Correlate with clinical findings and serum amylase/lipase levels for evidence of pancreatitis. --Gall Bladder USD: cholelithiasis within a mildly thick-walled and distended gallbladder. A sonographic Pacheco's sign is reportedly absent. Findings are equivocal for acute cholecystitis, which is not excluded. If there is strong clinical concern for cholecystitis a nuclear hepatobiliary scan should be considered. There is no intra or extrahepatic biliary ductal dilatation. Nonvisualization of the pancreas. --HIDA, MRCP reviewed --Mild transaminitis --S/P Laparoscopic cholecystectomy with intraoperative cholangiogram. on 07/01/22 by --Normal Lipid Panel Continue IV fluids Appreciate GI, Surgery Input Continue cefepime, Flagyl Pain control Clear liquid diet today Advance as tolerated Anxiety and Depression Continue Bupropion Polycystic ovarian syndrome Irritable bowel syndrome Obesity S/P Gastric Bypass Stable DVT Px: SCDs for now Encourage to ambulate Code Status Full Code Admission and Anticipated Discharge Date Admission Date: June 29, 2022 Subjective Patient is seen and examined at bedside Patient had cholecystectomy earlier today Doing well postoperatively Denies any significant pain at surgical site Also denies any chest pain, shortness of breath, dizziness, nausea Review of Systems Review of Systems: All systems reviewed & are unremarkable except as noted in Subjective Physical Exam Physical Exam: Physical Exam: Vitals signs as noted above General Appearance:Moderately built and nourished, no apparent distress Head: normocephalic, Atraumatic Eyes: normal inspection, EOMI Neck: supple, Trachea midline Respiratory/Chest: Normal breath sounds, CTA, No accessory muscle use Cardiovascular: S1, S2, No murmur Abdomen/GI:Soft, non tender, +Surgical scar, Bowel sounds present Extremities/Musculoskeletal:normal inspection, no edema Neurologic/Psych:AAOX3, grossly no focal neurological deficits Skin: normal color, warm Results & Data Results & Data ([facility]) Vital Signs (Past 12 Hours) Vital Signs Temp Pulse Pulse Pulse Resp BP Pulse Ox 07/01/22 13:30 36.9 C 68 16 103/67 96 07/01/22 12:30 36.9 C 81 18 114/70 96 07/01/22 11:49 36.8 C 83 16 110/69 95 07/01/22 11:00 36.8 C 77 16 109/70 95 07/01/22 10:00 36.7 C 66 14 114/72 95 07/01/22 09:50 71 13 119/73 95 07/01/22 09:40 74 11 L 128/77 95 07/01/22 09:20 74 18 120/79 96 07/01/22 09:30 71 17 120/77 96 07/01/22 09:10 36.3 C L 75 18 118/73 96 07/01/22 09:00 67 19 129/78 99 07/01/22 08:50 65 15 116/74 99 07/01/22 08:40 71 14 119/72 100 07/01/22 08:32 36.1 C L 91 H 14 128/83 100 07/01/22 07:53 68 07/01/22 06:43 36.9 C 65 18 106/63 100 O2 Del Method O2 Flow Rate 07/01/22 13:30 Room Air 07/01/22 12:30 Room Air 07/01/22 11:49 Room Air 07/01/22 11:00 Room Air 07/01/22 10:00 Room Air 07/01/22 09:50 Room Air 07/01/22 09:40 Room Air 07/01/22 09:20 Room Air 07/01/22 09:30 Room Air 07/01/22 09:10 Room Air 07/01/22 09:00 Oxymask 2 07/01/22 08:50 Oxymask 4 07/01/22 08:40 Oxymask 6 07/01/22 08:32 Oxymask 6 07/01/22 07:53 07/01/22 06:43 Room Air Laboratory Results Short CBC 07/01/22 Range/Units 04:31 WBC 6.20 (4.8-10.8) K/ul Hgb 10.3 L (12.0-16.0) g/dl Hct 30.1 L (34.1-44.9) % Plt Count 189 (130-400) K/uL BMP 07/01/22 04:31 Sodium 138 Potassium 3.8 Chloride 108 H Carbon Dioxide 24 BUN 6 Creatinine 0.51 L Glucose 69 L Calcium 7.7 L Liver Function 07/01/22 Range/Units 04:31 Total Bilirubin 0.5 (0.2-1.0) mg/dl Direct Bilirubin 0.1 (0-0.2) mg/dl AST 25 (13-39) U/L ALT 45 (7-52) U/L Alkaline Phosphatase 53 (34-104) U/L Albumin 3.1 L (3.4-5.0) gm/dl
[2022-07-02] MEDS: CEFEPIME 2,000 MG in SYRINGE 0 ML IV SCH ×2 (00:11→08:47)
[2022-07-02] MEDS: metroNIDAZOLE 500 MG/100 ML BAG IV SCH ×2 (00:12→08:47)
[2022-07-02] MEDS: LACTATED RINGER'S 1,000 ML IV SCH (04:56)
[2022-07-02 06:05] LABS: Hematocrit (blood only) 36.7 % (34.1-44.9); Hemoglobin 12.4 g/dl (12.0-16.0); Mean Corpuscular Hemoglobin 28.9 pg (25.0-34.0); Mean Corpuscular Hgb Conc 33.8 g/dL (32.0-36.0); Mean Corpuscular Volume 85.5 fL (80.0-100.0); Mean Platelet Volume 12.1 fL (9.4-12.3); Platelet Count 229 K/uL (130-400); RDW Coefficient of Variation 12.4 % (11.5-14.5); RDW Standard Deviation 38.6 fL (36.4-46.3); Red Blood Count 4.29 M/uL (3.93-5.22); White Blood Count 10.55 K/ul (4.8-10.8)
[2022-07-02 06:25] LABS: Albumin Globulin Ratio 1.2 (0.9-2); Albumin Level 3.6 gm/dl (3.4-5.0); BUN Creatinine Ratio 11.9 (10-20); Bilirubin,Total 0.6 mg/dl (0.2-1.0); Calcium 8.3 mg/dl (8.5-10.1); Est GFR (African American) 139.6 ml/min; Est GFR (Non-African American) 120.4 ml/min; Globulin 2.9 gm/dl (2.5-4.0); Potassium 3.6 mmol/L (3.5-5.1); Total Protein 6.5 gm/dl (6.0-8.3)
[2022-07-02 06:26] LABS: BUN Creatinine Ratio 11.7 (10-20); Calcium 8.5 mg/dl (8.5-10.1); Creatinine Clr Calc Pharmacy 136.7 ml/min; Est GFR (African American) 138.8 ml/min; Est GFR (Non-African American) 119.8 ml/min; Potassium 3.6 mmol/L (3.5-5.1)
--- NOTE | 2022-07-02 07:08 | Fluoroscopy Report ---
[place] cholangiogram OR HISTORY: 31 years-old Female Cholangiogram COMPARISON: CT 06/29/2022 TECHNIQUE: 3 spot fluoroscopic images of the abdomen were obtained utilizing 9.0 seconds of fluorosco py time FINDINGS: Cannulation of the cystic duct with injection of contrast. No biliary filling defects, strictures or dilation identified. Contrast extends into the duodenum. No contrast extravasation. IMPRESSION: Fluoroscopic assistance as above. ACT 112: Negative or not required by law. The above report was generated using voice recognition software. It may contain grammatical, syntax o r spelling errors. Electronically signed by: Surendra Hunt M.D. 07/02/2022 7:06 AM
[2022-07-02] MEDS: CALCIUM 600MG + VIT D 400 IU TAB PO SCH (08:47)
[2022-07-02] MEDS: buPROPion HCl 75 MG TABLET PO SCH (08:47)
[2022-07-02] MEDS: PANTOprazole 40 MG TAB PO SCH (08:47)
[2022-07-02] MEDS ORDERED: HEPARIN SOD 5,000 UNIT/0.5 ML VIAL SQ SCH (09:00)
--- NOTE | 2022-07-02 10:38 | Surgery Progress Note ---
Date of Service July 02, 2022 Assessment & Plan (1) Hx laparoscopic cholecystectomy: Plan: Patient is tolerating her diet Pain is controlled I had a I think she could be discharged home from surgical standpoint I do not think she requires antibiotics Will send pain medication to her pharmacy Discharge instructions within the EMR Admission and Anticipated Discharge Date Admission Date: June 29, 2022 [facility] Vital Signs (Past 12 Hours) Vital Signs Temp Pulse Pulse Resp BP Pulse Ox O2 Del Method 07/02/22 07:34 36.5 C 71 16 103/66 96 Room Air 07/02/22 04:11 36.8 C 69 18 100/65 97 Room Air 07/02/22 02:47 65 07/02/22 00:38 37.0 C 59 L 18 91/54 L 96 Room Air PG Care Time/CCT Total # of Minutes Spent Total Time Spent with Patient: Total time spent is greater than 50% in coordination of care (as documented) at patient's floor/unit and/or counseling patient: Coding Level of Care Code None Diagnoses Hx laparoscopic cholecystectomy Z90.49
--- NOTE | 2022-07-02 11:42 | Hospitalist Progress Note ---
Date of Service July 02, 2022 Assessment & Plan (1) Acute pancreatitis: Plan: Gallstone pancreatitis Possible abdominal pain small bowel obstruction Acute cholecystitis-POA H/O gastric bypass --CT ABD:There is postsurgical change consistent with a Karri-en-Y gastric bypass procedure. The proximal jejunum above the anastomosis is mildly distended and fluid-filled. The distal small bowel is relatively decompressed. No discrete transition point is identified. Low-grade or developing obstruction is not excluded. Clinical correlation will be essential. The gallbladder is distended and contains gallstones. Mild gallbladder wall thickening is nonspecific and may be related to periportal edema. Correlate with clinical and laboratory findings. If there is concern for acute cholecystitis a right upper quadrant ultrasound should be obtained. Question mild peripancreatic infiltration. Correlate with clinical findings and serum amylase/lipase levels for evidence of pancreatitis. --Gall Bladder USD: cholelithiasis within a mildly thick-walled and distended gallbladder. A sonographic Pacheco's sign is reportedly absent. Findings are equivocal for acute cholecystitis, which is not excluded. If there is strong clinical concern for cholecystitis a nuclear hepatobiliary scan should be considered. There is no intra or extrahepatic biliary ductal dilatation. Nonvisualization of the pancreas. --HIDA, MRCP reviewed --Mild transaminitis --S/P Laparoscopic cholecystectomy with intraoperative cholangiogram. on 07/01/22 by --Normal Lipid Panel Received IV fluids Appreciate GI, Surgery Input Received cefepime, Flagyl empirically--discontinued Pain control Advance diet today Plan to discharge home today Needs follow up with surgery upon discharge Anxiety and Depression Continue Bupropion Polycystic ovarian syndrome Irritable bowel syndrome Obesity S/P Gastric Bypass Stable DVT Px: SCDs for now Encourage to ambulate Code Status Full Code Admission and Anticipated Discharge Date Admission Date: June 29, 2022 Subjective Patient is seen and examined at bedside Feels well today Tolerating diet Minimal pain at surgical scars Denies any chest pain, shortness of breath, dizziness, nausea, vomiting Plan to discharge home today Review of Systems Review of Systems: All systems reviewed & are unremarkable except as noted in Subjective Physical Exam Physical Exam: Physical Exam: Vitals signs as noted above General Appearance:Moderately built and nourished, no apparent distress Head: normocephalic, Atraumatic Eyes: normal inspection, EOMI Neck: supple, Trachea midline Respiratory/Chest: Normal breath sounds, CTA, No accessory muscle use Cardiovascular: S1, S2, No murmur Abdomen/GI:Soft, non tender, +Surgical scar, Bowel sounds present Extremities/Musculoskeletal:normal inspection, no edema Neurologic/Psych:AAOX3, grossly no focal neurological deficits Skin: normal color, warm Results & Data Results & Data ([facility]) Vital Signs (Past 12 Hours) Vital Signs Temp Pulse Pulse Resp BP Pulse Ox O2 Del Method 07/02/22 07:34 36.5 C 71 16 103/66 96 Room Air 07/02/22 04:11 36.8 C 69 18 100/65 97 Room Air 07/02/22 02:47 65 07/02/22 00:38 37.0 C 59 L 18 91/54 L 96 Room Air Laboratory Results Short CBC 07/02/22 Range/Units 05:34 WBC 10.55 (4.8-10.8) K/ul Hgb 12.4 (12.0-16.0) g/dl Hct 36.7 (34.1-44.9) % Plt Count 229 (130-400) K/uL [facility] 07/02/22 07/02/22 05:34 05:34 Sodium 136 136 Potassium 3.6 3.6 Chloride 104 104 Carbon Dioxide 24 24 BUN 7 7 Creatinine 0.59 L 0.60 Glucose 79 80 Calcium 8.3 L 8.5 Liver Function 07/02/22 Range/Units 05:34 Total Bilirubin 0.6 (0.2-1.0) mg/dl Direct Bilirubin 0.0 (0-0.2) mg/dl AST 27 (13-39) U/L ALT 43 (7-52) U/L Alkaline Phosphatase 59 (34-104) U/L Albumin 3.6 (3.4-5.0) gm/dl
--- NOTE | 2022-07-02 11:48 | Discharge Summary ---
Date of Service July 02, 2022 Admission HPI Per Admitting Provider Patient is a 31-year-old female with history of polycystic ovarian syndrome, irritable bowel syndrome, Obesity S/P Gastric Bypass, cholelithiasis and other medical problems presents with history of epigastric sharp stabbing pain, 10/10 intensity, radiating to the back, associated with nausea and vomiting which started this afternoon after having lunch. 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 Patient had similar symptoms in the past few days ago which spontaneously resolved. Epigastric pain worsens with eating and improves with pain medications. Currently while in ED, patient is pain-free. She felt feverish today but did not check her temperature. She admits to drinking alcohol socially, last drink 2 days ago. Denies any history of chest pain, dyspnea, palpitations, dizziness, pedal edema, cough, headache, blood in stools, diarrhea, dysuria, hematuria. Admission Exam Per Admitting Provider Physical Exam: Vitals signs as noted above General Appearance:Moderately built and nourished, no apparent distress Head: normocephalic, Atraumatic Eyes: normal inspection, EOMI Neck: supple, Trachea midline Respiratory/Chest: Normal breath sounds, CTA, No accessory muscle use Cardiovascular: S1, S2, No murmur Abdomen/GI:Soft, mild Epigastric tender, Bowel sounds present Extremities/Musculoskeletal:normal inspection, no edema Neurologic/Psych:AAOX3, grossly no focal neurological deficits Skin: normal color, warm Principal Diagnosis Acute cholecystitis S/P laparoscopic cholecystectomy Gallstone pancreatitis Discharge Data Allergies Allergy/AdvReac Type Severity Reaction Status Date / Time Penicillins Allergy Unknown OCCURED Verified 06/29/22 15:55 A CHILD Consultations 06/29/22 18:21 ED Decision to Admit Stat 06/29/22 22:41 Consult Gastroenterology Routine Consult General Surgery Routine Procedures Performed Operation Date: 07/01/22 07:15 Actual Procedures p Laparoscopic Cholecystectomy with Cholangiogram(Not Applicable) - Chavo Cannon MD, FACS Ordered Studies 06/29/22 16:20 CT abd pelvis IV con only Stat 06/29/22 18:04 US gallbladder Stat 06/30/22 10:11 MR MRCP Routine 07/01/22 FL cholangiogram OR Routine Laboratory Results WBC 10.55 K/ul (4.8-10.8) 07/02/22 05:34 RBC 4.29 M/uL (3.93-5.22) 07/02/22 05:34 Hgb 12.4 g/dl (12.0-16.0) 07/02/22 05:34 Hct 36.7 % (34.1-44.9) 07/02/22 05:34 MCV 85.5 fL (80.0-100.0) 07/02/22 05:34 MCH 28.9 pg (25.0-34.0) 07/02/22 05:34 MCHC 33.8 g/dL (32.0-36.0) 07/02/22 05:34 RDW Std Deviation 38.6 fL (36.4-46.3) 07/02/22 05:34 RDW Coeff of Paula 12.4 % (11.5-14.5) 07/02/22 05:34 Plt Count 229 K/uL (130-400) 07/02/22 05:34 MPV 12.1 fL (9.4-12.3) 07/02/22 05:34 Immature Gran % (Auto) 0.5 % 07/01/22 04:31 Neut % (Auto) 57.4 % 07/01/22 04:31 Lymph % (Auto) 32.1 % 07/01/22 04:31 [place] % (Auto) 7.4 % 07/01/22 04:31 Eos % (Auto) 1.8 % 07/01/22 04:31 Baso % (Auto) 0.8 % 07/01/22 04:31 Neut # (Auto) 3.56 K/uL (1.4-6.5) 07/01/22 04:31 Lymph # (Auto) 1.99 K/uL (1.2-3.4) 07/01/22 04:31 [place] # (Auto) 0.46 K/uL (0.24-0.82) 07/01/22 04:31 Eos # (Auto) 0.11 K/uL (0-0.50) 07/01/22 04:31 Baso # (Auto) 0.05 K/uL (0-0.2) 07/01/22 04:31 Immature Gran # (Auto) 0.03 K/uL (0.00-0.02) H 07/01/22 04:31 Sodium 136 mmol/L (136-145) 07/02/22 05:34 Sodium 136 mmol/L (136-145) 07/02/22 05:34 Potassium 3.6 mmol/L (3.5-5.1) 07/02/22 05:34 Potassium 3.6 mmol/L (3.5-5.1) 07/02/22 05:34 Chloride 104 mmol/L (98-107) 07/02/22 05:34 Chloride 104 mmol/L (98-107) 07/02/22 05:34 Carbon Dioxide 24 mmol/L (21-32) 07/02/22 05:34 Carbon Dioxide 24 mmol/L (21-32) 07/02/22 05:34 Anion Gap 8 (3-11) 07/02/22 05:34 Anion Gap 8 (3-11) 07/02/22 05:34 BUN 7 mg/dl (6-23) 07/02/22 05:34 BUN 7 mg/dl (6-23) 07/02/22 05:34 Creatinine 0.59 mg/dl (0.6-1.2) L 07/02/22 05:34 Creatinine 0.60 mg/dl (0.6-1.2) 07/02/22 05:34 Est Cr Clr Drug Dosing 136.7 ml/min 07/02/22 05:34 Est Cr Clr Drug Dosing 139.0 ml/min 07/02/22 05:34 Est GFR ( Amer) 138.8 ml/min 07/02/22 05:34 Est GFR ( Amer) 139.6 ml/min 07/02/22 05:34 Est GFR (Non-Af Amer) 119.8 ml/min 07/02/22 05:34 Est GFR (Non-Af Amer) 120.4 ml/min 07/02/22 05:34 BUN/Creatinine Ratio 11.7 (10-20) 07/02/22 05:34 BUN/Creatinine Ratio 11.9 (10-20) 07/02/22 05:34 Glucose 79 mg/dl (70-99(Fasting)) 07/02/22 05:34 Glucose 80 mg/dl (70-99(Fasting)) 07/02/22 05:34 Estimat Average Glucose 100 mg/dl 06/30/22 05:29 Hemoglobin A1c 5.1 % (4.5-5.6) 06/30/22 05:29 Calcium 8.3 mg/dl (8.5-10.1) L 07/02/22 05:34 Calcium 8.5 mg/dl (8.5-10.1) 07/02/22 05:34 Magnesium 2.0 mg/dl (1.7-2.4) 06/30/22 05:29 Total Bilirubin 0.6 mg/dl (0.2-1.0) 07/02/22 05:34 Direct Bilirubin 0.0 mg/dl (0-0.2) 07/02/22 05:34 AST 27 U/L (13-39) 07/02/22 05:34 ALT 43 U/L (7-52) 07/02/22 05:34 Alkaline Phosphatase 59 U/L (34-104) 07/02/22 05:34 Total Protein 6.5 gm/dl (6.0-8.3) D 07/02/22 05:34 Albumin 3.6 gm/dl (3.4-5.0) 07/02/22 05:34 Globulin 2.9 gm/dl (2.5-4.0) 07/02/22 05:34 Albumin/Globulin Ratio 1.2 (0.9-2) 07/02/22 05:34 Triglycerides 86 mg/dl (0-150) 06/30/22 05:29 Cholesterol 135 mg/dl (0-200) 06/30/22 05:29 LDL Cholesterol, Calc 54 mg/dl 06/30/22 05:29 VLDL Cholesterol, Calc 17 mg/dl (0-30) 06/30/22 05:29 HDL Cholesterol 64 mg/dl 06/30/22 05:29 Cholesterol/HDL Ratio 2.1 (0-5) 06/30/22 05:29 Lipase 37 U/L (11-82) 07/02/22 05:34 HCG, Qual Negative (Negative) 06/29/22 15:33 SARS-CoV-2, RNA, NAAT NEGATIVE (NEGATIVE) 06/29/22 18:53 Impressions Abdomen/Pelvis CT 06/29/22 16:20 CT SCAN OF THE ABDOMEN AND PELVIS WITH IV CONTRAST CLINICAL HISTORY: Epigastric abdominal pain. COMPARISON STUDY: Pelvic ultrasound dated 12/26/2018. TECHNIQUE: Following the IV administration of 82 cc of Optiray 350, CT scan of the abdomen and pelvis is performed from the lung bases to the proximal femora. Images are reviewed in the axial, sagittal, and coronal planes. IV contrast was administered without complication. A dose lowering technique was utilized adhering to the principles of ALARA. CT DOSE: 409.70 mGy.cm FINDINGS: Lung bases: The heart is normal in size and without pericardial effusion. The lung bases are clear. Liver: The contrast-enhanced liver is normal in size, contour, and attenuation. There is no intrahepatic biliary ductal dilatation. The hepatic veins and portal veins are patent. Periportal edema is noted. Gallbladder: Distended and contains gallstones. The gallbladder wall appears mildly thickened. Spleen: Normal in size and attenuation. Pancreas: Question mild peripancreatic infiltration. The pancreas is otherwise normal as imaged, and the gland enhances throughout. Adrenal glands: Unremarkable. Kidneys: The contrast enhanced kidneys are normal in size and without hydronephrosis. The kidneys enhance symmetrically. Abdominal vasculature: The abdominal aorta is normal in course and caliber. Stomach and bowel: Postsurgical changes consistent with a Karri-en-Y gastric bypa ss procedure. The proximal jejunum is distended and fluid-filled measuring up to 3 cm diameter. The distal small bowel is relatively decompressed. No discrete transition point is identified. There is moderate colonic fecal retention. The appendix is well-visualized and normal. Peritoneum: There is no intraperitoneal free air or abdominal ascites. Lymphadenopathy: None. Pelvic viscera: The bladder, uterus, and adnexa are normal as visualized noting bilateral ovarian follicles. A dominant follicle on the left measures up to 3.1 cm. A contraceptive ring is in place. Skeletal structures: No lytic or blastic lesions are seen. IMPRESSION: 1. There is postsurgical change consistent with a Karri-en-Y gastric bypass procedure. 2. The proximal jejunum above the anastomosis is mildly distended and fluid- filled. The distal small bowel is relatively decompressed. No discrete transition point is identified. Low-grade or developing obstruction is not excluded. Clinical correlation will be essential. 3. The gallbladder is distended and contains gallstones. Mild gallbladder wall thickening is nonspecific and may be related to periportal edema. Correlate with clinical and laboratory findings. If there is concern for acute cholecystitis a right upper quadrant ultrasound should be obtained. 4. Question mild peripancreatic infiltration. Correlate with clinical findings and serum amylase/lipase levels for evidence of pancreatitis. 5. Additional findings as above. ACT 112: Negative or not required by law. Electronically signed by: Unruly Martinez M.D. 06/29/2022 5:29 PM Gallbladder Ultrasound 06/29/22 18:04 ULTRASOUND RIGHT UPPER QUADRANT ABDOMEN CLINICAL HISTORY: Epigastric abdominal pain. COMPARISON STUDY: Abdominal CT performed earlier the same date 06/29/2022 TECHNIQUE: Real-time, grayscale, and color flow sonography of the right upper quadrant of the abdomen was performed. Images are reviewed in the transverse and longitudinal planes. FINDINGS: Liver: The liver is top normal in size and normal in echotexture. There is no intrahepatic biliary ductal dilatation. The main portal vein is patent. Gallbladder: The gallbladder is distended and appears thick-walled the gallbladder wall measures up to 3 mm. Gallstones are noted. Cholecystectomy is identified. A sonographic Pacheco's sign is reportedly absent. The common bile duct measures up to 0.3 cm in diameter. Pancreas: Not visualized due to overlying bowel gas. Right kidney: Survey images of the right kidney demonstrate normal size and echotexture. There is no hydronephrosis. Ascites: None. IMPRESSION: 1. Cholelithiasis within a mildly thick-walled and distended gallbladder. A sonographic Pacheco's sign is reportedly absent. Findings are equivocal for acute cholecystitis, which is not excluded. If there is strong clinical concern for cholecystitis a nuclear hepatobiliary scan should be considered. 2. There is no intra or extrahepatic biliary ductal dilatation. 3. Nonvisualization of the pancreas. ACT 112: Negative or not required by law. Electronically signed by: Unruly Martinez M.D. 06/29/2022 8:20 PM Cholangiopancreatography MRI 06/30/22 10:11 MR MRCP HISTORY: elevate AST/ALT, rule out CBD stone TECHNIQUE: MRCP of the abdomen was performed according to standard department p rotocol without the use of intravenous contrast. COMPARISON STUDY: Abdomen and pelvis CT 06/29/2022. FINDINGS: Mild motion artifact. The lung bases are clear. The liver, spleen, adrenal glands, and kidneys are unremarkable. No hydronephrosis. The main portal vein appears patent. Normal caliber abdominal aorta. No retroperitoneal lymphadenopathy. Focal area of intussusception within the jejunum best seen on image 64. This was not present on the prior study and is typically considered a transient phenomenon in an adult. No dilated loops of bowel to suggest an obstruction. Small amount of pericholecystic fluid, unchanged. There is small amount of edema/inflammatory change surrounding the pancreatic head. The pancreatic head appears slightly edematous. Multiple small gallstones again note d. The common bile duct appears be normal and caliber measuring 3 mm. The distal common bile duct is nondiagnostic due to motion artifact. Otherwise, no definite filling defects seen within the common bile duct. No definite gallbladder wall thickening. The main pancreatic duct is not well visualized due to the motion artifact but likely normal in caliber. IMPRESSION: 1. Suboptimal study due to the motion artifact. 2. Small amount of edema/inflammatory change surrounding the pancreatic head. The pancreatic head appears slightly edematous. Therefore, this likely represents an acute pancreatitis. Recommend correlation with pancreatic enzymes. An adjacent duodenitis could also have a similar appearance but is considered less likely. 3. The distal common bile duct is nondiagnostic due to motion artifact. However, common bile duct is normal in caliber. 4. Cholelithiasis. Small amount of pericholecystic fluid is again noted. This is likely due to the suspected pancreatitis. Acute cholecystitis is considered less likely but not entirely excluded. ACT 112: Negative or not required by law. Electronically signed by: Bryan De La Cruz M.D. 06/30/2022 2:36 PM Hepatobiliary Scan Nuclear Medicine 06/30/22 10:45 NM hepatobiliary EF CLINICAL HISTORY: 31 years-old Female with Acute cholecystitis. Acute right upper quadrant abdominal pain TECHNIQUE: Following the intravenous administration of 5.3 mCi of technetium- 99m Choletec, sequential abdominal images were obtained. In order to evaluate the contractile response of the gallbladder, 1.62 mcg of Kinevac was administered by slow intravenous infusion over 30 min starting approximately 60 min after the administration of the radiopharmaceutical. Sequential imaging was continued for 45 min after the start of the Kinevac infusion. COMPARISON: CT abdomen and pelvis 06/29/2022 FINDINGS: There is prompt, uniform accumulation of the tracer by the liver. There is normal filling of the intrahepatic ducts, common bile duct and gallbladder and normal excretion of the tracer into the duodenum. There is normal contraction of the gallbladder. The calculated gallbladder ejection fraction is 97% (normal >40%). There is mild enterogastric reflux. IMPRESSION: 1. Normal contractile response of the gallbladder to Kinevac infusion. 2. Normal biliary imaging study. ACT 112: Negative or not required by law. The above report was generated using voice recognition software. It may contain grammatical, syntax or spelling errors. Electronically signed by: Surendra Hunt M.D. 06/30/2022 6:16 PM Hospital Course (1) Acute pancreatitis: Gallstone pancreatitis Possible abdominal pain small bowel obstruction Acute cholecystitis-POA H/O gastric bypass --CT ABD:There is postsurgical change consistent with a Karri-en-Y gastric bypass procedure. The proximal jejunum above the anastomosis is mildly distended and fluid-filled. The distal small bowel is relatively decompressed. No discrete transition point is identified. Low-grade or developing obstruction is not excluded. Clinical correlation will be essential. The gallbladder is distended and contains gallstones. Mild gallbladder wall thickening is nonspecific and may be related to periportal edema. Correlate with clinical and laboratory findings. If there is concern for acute cholecystitis a right upper quadrant ultrasound should be obtained. Question mild peripancreatic infiltration. Correlate with clinical findings and serum amylase/lipase levels for evidence of pancreatitis. --Gall Bladder USD: cholelithiasis within a mildly thick-walled and distended gallbladder. A sonographic Pacheco's sign is reportedly absent. Findings are equivocal for acute cholecystitis, which is not excluded. If there is strong clinical concern for cholecystitis a nuclear hepatobiliary scan should be considered. There is no intra or extrahepatic biliary ductal dilatation. Nonvisualization of the pancreas. --HIDA, MRCP reviewed --Mild transaminitis --S/P Laparoscopic cholecystectomy with intraoperative cholangiogram. on 07/01/22 by --Normal Lipid Panel Received IV fluids Appreciate GI, Surgery Input Received cefepime, Flagyl empirically--discontinued Pain control Advance diet today Plan to discharge home today Needs follow up with surgery upon discharge Anxiety and Depression Continue Bupropion Polycystic ovarian syndrome Irritable bowel syndrome Obesity S/P Gastric Bypass Stable DVT Px: SCDs for now Encourage to ambulate Code Status Full Code Total Time Total Time Spent Total Time Spent (In Minutes): 45 minutes Discharge Plan Discharge Items Patient Disposition: Home - Self-Care Reason For Visit: ABDOMINAL PAIN Discharge Diagnosis: Acute cholecystitis S/P laparoscopic cholecystectomy Gallstone pancreatitis Activity: Per Instructions section Activity Comment: light activity for 4 weeks Lifting: No more than 10 pounds Bathing Comment: may shower; no soaking in tubs/pools Sexual Activity: When tolerated Exercise/Sports: Wait until after follow-up appointment Exercise Comment: light activity for 4 weeks Driving/Machine Use: no driving if taking any narcotic for pain Non-emergency contact: Primary Care Provider and Surgeon Call non-emergency contact if: you have any medication questions, your symptoms worsen, your pain is not controlled, your pain is concerning for you, you have a fever, your temperature is above 101.5, your wound has increased redness, your wound has increased drainage and your wound pain has increased Follow-up/Referrals: Chavo Cannon MD, FACS [Physician] - Zen Segal DO [Primary Care Provider] - (Date & Time 07/09/2022 1:00 PM Provider Zen Segal DO Department [facility] ) Diet: Regular Addtl Attending Provider Instructions: SPECIAL CARE INSTRUCTIONS: * Cover incisions and change daily for comfort/drainage. May leave uncovered with Dermabond * May use ibuprofen for pain as tolerated. * Expect some swelling and bruising. Call your doctor if: * Temperature above 101 degrees * Pain not relieved by pain medicine ordered * There is increased drainage or redness from any incision * You have any unanswered questions or concerns [phone]. FOLLOW UP VISIT: If not already scheduled, please call the office for a follow-up visit. For 2 weeksno sutures to remove OFFICE PHONE NUMBER: Dr. Cannon Office Add Vp Project Provider Instructions: Follow-up with your primary care physician Dr. Segal on 07/09/2022 1:00 PM Provider as scheduled Follow-up with your surgeon Dr. Cannon as advised Seek immediate medical attention if your symptoms reoccur or worsen Please take all medications as instructed on discharge list below. Please call if you have any questions or problems. You can reach a [facility] hospitalist on duty at [facility] 24 hours a day by calling [phone] Pending Studies at Discharge: Yes Studies:: surgical pathology Stand-Alone Forms: My [facility], Work/School Release, Smoking Cessation Medications and DC Order Prescriptions: New hydrocodone-acetaminophen 5-325 mg tablet 1 tab PO Q4H PRN (Reason: pain) Qty: 30 0RF Rx Instructions: For severe pain you may take 2 tablets but not more than 6 tablets in a single day Continued pantoprazole 40 mg tablet,delayed release (DR/EC) 40 mg PO QAM bupropion HCl 75 mg tablet 75 mg PO BID etonogestrel-ethinyl estradiol [EluRyng] 0.12-0.015 mg/24 hr ring 1 vag ring VAGINAL UD lysine 1,000 mg Tablet 1,000 mg PO DAILY cyanocobalamin (vitamin B-12) [Cyanacobalamin] 1,000 mcg/mL Solution 1,000 mcg IM Q28D Calcium + Vitamin D 600 mg calcium- 200 unit Tablet 1 tab PO BID Discharge Orders: Discharge Order (Routine); Ordered 07/02/22 Ordered By: Chavo Cannon Admission Data Admit Date/Time: 06/29/22 20:45 Attending Provider: Karlos Nazario Admit Provider: Karlos Nazario Primary Care Provider: Zen Segal Other Providers: Karlos Nazario ; Lia Modi ; Geovanni Conner ; Danette Mojica ; Rozina Thao ; Daja Tiwari ; Rita Haynes ; Anselmo,Matt ; Stephanie Yoon ; Barry Steve ; Leonides Melendez ; Jorge Morin ; Isaiah Lopez ; Madyson Cha ; Lizzette Johnson ; Terese Gauthier ; Danica Bertrand ; Shaq Roman ; Apolinar Roe ; Stewart Leyva ; Jasmin Lowe ; Margo Donnelly Jr ; Pedro Lynne ; Rodney Whitney ; Tracy Santana ; Chastity Melendez ; Raffi Banuelos ; Shun Oliveros ; Dinora Carreno ; Rzoina Christine ; Chavo Hernandez Jr ; Gege Pandey ; Jayro Do ; Danica Krishnan
== END 2022-07-02 13:15 | disposition home or self-care (01) | DRG 417 ==
LOC: ED 15:29 → 2N 20:45